=== PATIENT | male | born 1950 | race Caucasian/White ===

== ENCOUNTER 2016-07-01 01:46 | Outpatient (CLI) ==
[2016-07-01 02:13] VITALS: BMI 19.8
== END 2016-07-01 01:47 | disposition home or self-care (01) ==
LOC: AMBL 01:46
PROVIDERS: ATTEND Emergency Medicine
DX: F10.10 Alcohol abuse, uncomplicated (principal); F19.10 Other psychoactive substance abuse, uncomplicated; R47.81 Slurred speech; R26.9 Unspecified abnormalities of gait and mobility; I10 Essential (primary) hypertension

== ENCOUNTER 2016-07-01 01:58 | Emergency (ER) ==
[2016-07-01 02:13] VITALS: BP 71/43; TEMP 97.7; BMI 19.8
[2016-07-01 02:40] LABS: ABG PH 7.322 (7.35-7.45)
[2016-07-01 02:41] LABS: ABG BASE EXCESS 1 (-2.0-2.0); ABG HCO3 26.9 (22.0-26.0); ABG TCO2 28 (22.0-28.0)
[2016-07-01] MEDS ORDERED: DUONEB NEB STA (02:49)
[2016-07-01] MEDS ORDERED: SOLU-MEDROL 125 MG IVP STA (02:49)
--- NOTE | 2016-07-01 02:53 | ED.PDOC ---
General ED Provider: Dr. CIRO BERNARDO Chief Complaint: Weakness Stated Complaint: Patient is brought by the sister, as he was found on the floor and blood pressure is low, he is been drinking tonight, and took extra pain medications for migrain, now has some slurry speach, Time Seen by Physician: 02:50 Mode of Arrival: Ambulance Information Source: Patient, Family, Alf [facility] T[facility] Documentation Reviewed and Agree: Yes Neurological Complaint Exam - Weakness Complaint/Exam Onset: Sudden Symptoms Are: Still present Timing: Constant Episodes Lasting: Hours Initial Severity: Moderate Current Severity: Moderate Character: Reports: Lightheaded, Weak Aggravating: Reports: None Alleviating: Reports: None Associated Signs and Symptoms: Reports: Unsteady gait, Change in medication, OTC meds, Loss of balance. Denies: Nausea, Vomiting, Diaphoresis, Tinnitus, Chest pain, Short of air, Palpitations, GI blood loss, Visual changes, Decreased oral intake, Change in diet Related History: Similar episode Cardiac Risk Factors: Reports: None CVA Risk Factors: Reports: Valvular Heart Disease Related Surgical History: Reports: None JVD Present: No Carotid Bruit Present: No Rectal Heme Positive: No Nystagmus Present: No Gag Reflex Present: No Meningeal Signs Positive: No Focal Weakness: Present: None Focal Sensory Loss: Present: None Gait: Unable [id number]: Normal Findings Romberg Test Positive: No Babinski Sign: Negative Right, Negative Left Heel to Toe Normal: Yes Differential Diagnoses: Hypovolemia, Medication reaction, Metabolic abnormalities, Other (etoh) Quality Indicators for AMI: EKG in 10min. Review of Systems - Review Of Systems Constitutional: Reports: Malaise, Weakness Eyes: Reports: No symptoms Ears, Nose, Mouth, Throat: Reports: No symptoms Respiratory: Reports: Cough Cardiac: Reports: No symptoms GI: Reports: No symptoms : Reports: No symptoms Musculoskeletal: Reports: No symptoms Skin: Reports: No symptoms Neurological: Reports: Headache, Weakness Endocrine: Reports: No symptoms Hematologic/Lymphatic: Reports: No symptoms All Other Systems: Reviewed and Negative Past Medical History - Past Medical History Previously Healthy: No Endocrine: Reports: None Cardiovascular: Reports: Hypertension, A-Fib Respiratory: Reports: COPD, Asthma Hematological: Reports: None Gastrointestinal: Reports: None Genitourinary: Reports: None Neuro/Psych: Reports: Migraine, Anxiety, Depression Musculoskeletal: Reports: None Cancer: Reports: None Other Pertinent Past Medical History: cspine stenosis cce - Surgical History General Surgical History: Reports: Cholecystectomy - Family History Family History: Reports: Unknown - Social History Smoking Status: Current every day smoker, Heavy tobacco smoker Smoking Cessation Counseling Time: > 10 min Hx Substance Use: No Alcohol Screening: Occasionally - Immunizations Tetanus Shot up to Date: Yes Physical Exam - Physical Exam Appearance: Ill-appearing, Obese Ill-appearing: Mild Eyes: EOMI, Conjunctiva clear ENT: Ears normal, Nose normal, Oropharynx normal Respiratory: Breath sounds diminished Cardiovascular: RRR, Pulses normal, No rub, No murmur GI/: Soft, Nontender, No masses, Bowel sounds normal, No Organomegaly Musculoskeletal: Normal strength, ROM intact, No edema, No calf tenderness Skin: Warm, Dry, Normal color Neurological: Sensation intact, Motor intact (following commands and moving all 4 extremities), Cranial nerves intact, Alert, Oriented Psychiatric: Affect appropriate, Mood appropriate Interpretation - Radiology Interpretation Radiology Interpretation By: Radiologist Radiology Results: Negative Exam Interpreted: CT Scan Critical Care Note - Critical Care Note Total Time (mins): 0 Course - Course Hematology/Chemistry: 07/01/16 02:50 07/01/16 08:00 Orders, Labs, Meds: Lab Review 07/01/16 07/01/16 07/01/16 02:40 02:49 02:50 WBC 9.00 RBC 4.71 Hgb 14.3 Hct 43.9 MCV 93.2 MCH 30.4 MCHC 32.6 RDW Coeff of [place] 15.1 H Plt Count 239 Immature Gran % (Auto) 0.3 Neut % (Auto) 61.1 Lymph % (Auto) 28.3 Wirt % (Auto) 6.9 Eos % (Auto) 2.0 Baso % (Auto) 1.4 Immature Gran # (Auto) 0.0 Neut # 5.5 Lymph # 2.6 Wirt # 0.6 Eos # 0.2 Baso # 0.1 Puncture Site Rb O2 Saturation 86.0 L ABG pH 7.322 L ABG pCO2 52.0 H ABG pO2 57.0 L* ABG HCO3 26.9 H ABG Total CO2 28 ABG Base Excess 1 Willian Test + O2 Delivery Device Bnc Oxygen Liter Flow 2.00 FiO2 % 28.0 Sodium 144 Potassium 2.9 L Chloride 103 Carbon Dioxide 27 Anion Gap 16.9 BUN 14 Creatinine 0.81 Estimated GFR (MDRD) 96.00 BUN/Creatinine Ratio 17.28 Glucose 76 L Calcium 8.7 Total Bilirubin 0.22 AST 22 ALT 16 Alkaline Phosphatase 73 Total Creatine Kinase 75 Troponin I 0.0120 B-Natriuretic Peptide 76 Total Protein 7.0 Albumin 3.8 Globulin 3.2 Albumin/Globulin Ratio 1.19 Urine Color Urine Clarity Urine pH Ur Specific [place] Urine Protein Urine Glucose (UA) Urine Ketones Urine Blood Urine Nitrite Urine Bilirubin Urine Urobilinogen Ur Leukocyte Esterase Urine Microscopic RBC Urine Microscopic WBC Ur Squamous Epith Cells Urine Opiates Screen Ur Oxycodone Screen Urine Methadone Screen Ur Propoxyphene Screen Ur Barbiturates Screen U Tricyclic Antidepress Ur Phencyclidine Scrn Ur Amphetamine Screen U Methamphetamines Scrn U Benzodiazepines Scrn Urine Cocaine Screen U Cannabinoids Screen Plasma/Serum Alcohol 216.5 H 07/01/16 07/01/16 07/01/16 08:00 09:25 09:30 WBC RBC Hgb Hct MCV MCH MCHC RDW Coeff of [place] Plt Count Immature Gran % (Auto) Neut % (Auto) Lymph % (Auto) Wirt % (Auto) Eos % (Auto) Baso % (Auto) Immature Gran # (Auto) Neut # Lymph # Wirt # Eos # Baso # Puncture Site O2 Saturation ABG pH ABG pCO2 ABG pO2 ABG HCO3 ABG Total CO2 ABG Base Excess Willian Test O2 Delivery Device Oxygen Liter Flow FiO2 % Sodium Potassium 3.8 Chloride Carbon Dioxide Anion Gap BUN Creatinine Estimated GFR (MDRD) BUN/Creatinine Ratio Glucose Calcium Total Bilirubin AST ALT Alkaline Phosphatase Total Creatine Kinase Troponin I B-Natriuretic Peptide Total Protein Albumin Globulin Albumin/Globulin Ratio Urine Color Yellow Urine Clarity Clear Urine pH 6.0 Ur Specific [place] 1.015 Urine Protein 1+ Urine Glucose (UA) Negative Urine Ketones Trace Urine Blood Negative Urine Nitrite Negative Urine Bilirubin Negative Urine Urobilinogen 0.2 Ur Leukocyte Esterase Negative Urine Microscopic RBC 0-2 Urine Microscopic WBC 0-2 Ur Squamous Epith Cells 2-5 Urine Opiates Screen Positive Ur Oxycodone Screen Negative Urine Methadone Screen Negative Ur Propoxyphene Screen Negative Ur Barbiturates Screen Negative U Tricyclic Antidepress Negative Ur Phencyclidine Scrn Negative Ur Amphetamine Screen Negative U Methamphetamines Scrn Negative U Benzodiazepines Scrn Negative Urine Cocaine Screen Negative U Cannabinoids Screen Negative Plasma/Serum Alcohol 41.2 Orders Category Date Time Status ABG DRAW REQUEST Stat CARDIO 07/01/16 02:40 Completed EKG-(ED ONLY) Stat CARDIO 07/01/16 05:46 Completed NEBULIZER TREATMENT Stat CARDIO 07/01/16 02:50 Completed IV [ED IV/MEDIPORT/POWERPORT] .ONCE EMERGENCY 07/01/16 02:59 Active ABG Stat LAB 07/01/16 02:40 Completed BLOOD ALCOHOL Stat LAB 07/01/16 02:49 Completed BLOOD ALCOHOL Stat LAB 07/01/16 09:30 Completed BNP [B-TYPE NATRIURETIC PEPTIDE] Stat LAB 07/01/16 02:50 Completed CBC W/ AUTO DIFF Stat LAB 07/01/16 02:50 Completed COMPREHENSIVE METABOLIC PANEL Stat LAB 07/01/16 02:50 Completed CREATINE KINASE Stat LAB 07/01/16 02:50 Completed DRUG SCREEN, URINE, RAPID Stat LAB 07/01/16 09:25 Completed POTASSIUM Stat LAB 07/01/16 08:00 Completed TROPONIN I Stat LAB 07/01/16 02:50 Completed URINALYSIS C & S IF INDICATED Stat LAB 07/01/16 09:25 Completed 0.9 % Sodium Chloride [Saline Flush] MEDS 07/01/16 02:59 Discontinued 1 syr IVF PRN PRN Ipratropium/Albuterol Neb [Duoneb] MEDS 07/01/16 02:49 Discontinued 1 vial NEB ONCE STA Meperidine HCl/Pf [Demerol 25 mg/ml Syringe] MEDS 07/01/16 10:20 Discontinued 25 mg IVP ONCE STA Methylprednisolone Sod Succ/Pf [Solu-Medrol 125 mg] MEDS 07/01/16 02:49 Discontinued 80 mg IVP ONCE STA Ondansetron HCl/Pf [Zofran 4 mg/2 ml] MEDS 07/01/16 10:20 Discontinued 4 mg IVP ONCE STA Potassium Chloride Additive [Potassium Chloride 20 Meq MEDS 07/01/16 06:52 Discontinued Vial-Additive Only] 20 meq IV ONCE ONE Potassium Chloride [K-Dur] MEDS 07/01/16 06:52 Discontinued 40 meq PO ONCE STA Sodium Chloride 0.9% [Sodium Chloride] 1,000 ml MEDS 07/01/16 02:56 Discontinued IV 100 mls/hr CT CHEST W/O CONTRAST Stat RADS 07/01/16 02:[address] HEAD W/O CONTRAST Stat RADS 07/01/16 02:31 Completed Medications Discontinued Medications Generic Name Dose Route Start Last Admin Trade Name Rey PRN Reason Stop Dose Admin Albuterol/Ipratropium 1 vial 07/01/16 02:49 07/01/16 03:16 Duoneb NEB 07/01/16 02:50 1 vial ONCE STA Administration Sodium Chloride 1,000 mls @ 100 mls/hr 07/01/16 02:56 07/01/16 02:59 Sodium Chloride IV 07/01/16 12:55 100 mls/hr .Q10H STA Administration Meperidine HCl 25 mg 07/01/16 10:20 07/01/16 10:43 Demerol 25 Mg/Ml Syringe IVP 07/01/16 10:21 25 mg ONCE STA Administration Methylprednisolone Sodium Succinate 80 mg 07/01/16 02:49 07/01/16 02:56 Solu-Medrol 125 Mg IVP 07/01/16 02:50 80 mg ONCE STA Administration Ondansetron HCl 4 mg 07/01/16 10:20 07/01/16 10:41 Zofran 4 Mg/2 Ml IVP 07/01/16 10:21 4 mg ONCE STA Administration Potassium Chloride 20 meq 07/01/16 06:52 07/01/16 07:08 Potassium Chloride 20 Meq Vial-Additive Only IV 07/01/16 06:53 20 meq ONCE ONE Administration Potassium Chloride 40 meq 07/01/16 06:52 07/01/16 07:08 K-Dur PO 07/01/16 06:53 40 meq ONCE STA Administration Sodium Chloride 1 syr 07/01/16 02:59 Saline Flush IVF PRN PRN To flush IV Vital Signs: Temp Pulse Resp BP Pulse Ox 07/01/16 02:00 97.7 F 57 L 18 71/43 L 85 L Departure - Departure Time of Disposition: 09:28 Disposition: HOME SELF-CARE Discharge Problem: Elevated ETOH level Qualifiers: Blood alcohol level: 200-239 mg/100 ml Qualifier Code: (Y90.7) Blood alcohol level of 200-239 mg/100 ml Hypotension Qualifiers: Hypotension type: hypotension due to drug Qualifier Code: (I95.2) Hypotension due to drugs Instructions: Alcohol Use Disorder (ED) Condition: Stable Pt referred to PMD for follow-up: Yes Additional Instructions: increase hydration needs to have f/u with PMD in 3-4 days advised to quite drinking etoh Allergies/Adverse Reactions: Allergies butorphanol tartrate [From Stadol] Adverse Reaction (Verified 07/01/16 02:13) prochlorperazine edisylate [From Compazine] Adverse Reaction (Verified 07/01/16 02:13) prochlorperazine maleate [From Compazine] Adverse Reaction (Verified 07/01/16 02 :13) Home Medications: Ambulatory Orders Buspirone HCl 7.5 mg PO TID 02/14/13 Sotalol HCl [Sotalol] 80 mg PO BID 02/14/13 Albuterol Sulfate [Ventolin Hfa] 2 inhaler IH QID PRN 10/22/14 Fluticasone Propionate [Flonase] 2 spray TACO DAILY 10/22/14 Lisinopril [Zestril] 40 mg PO BID 10/22/14 Escitalopram Oxalate [Lexapro] 40 mg PO DAILY 11/11/15 Pantoprazole Sodium [Protonix] 40 mg PO BID 11/11/15 Gabapentin 1,200 mg PO QID 11/19/15 Amlodipine Besylate 10 mg PO DAILY #30 tab-cap 12/04/15 Fluticasone/Salmeterol 250/50 [Advair 250-50 Diskus] 1 puff IH BID 01/18/16 Acetaminophen with Codeine [Acetaminophen-Cod #4 Tablet] 1 each PO Q6H PRN 07/01 Chlorpheniramine Maleate [Aller-Chlor] 4 mg PO Q4-6H PRN 07/01/16 Cyanocobalamin (Vitamin B-12) [Vitamin B12] 5,000 mcg PO DAILY 07/01/16 Disposition Discussed With: Patient, Family
[2016-07-01] MEDS ORDERED: SODIUM CHLORIDE 1,000 ML IV STA (02:56)
[2016-07-01 03:01] LABS: BASOPHILS # (AUTO) 0.1 K/uL (0-0.2); BASOPHILS % (AUTO) 1.4 % (0.0-3.0); EOSINOPHILS # (AUTO) 0.2 K/ul (0.0-0.7); HEMATOCRIT 43.9 % (42.0-52.0); HEMOGLOBIN 14.3 g/dl (14.0-18.0); IMMATURE GRANULOCYTE % (AUTO) 0.3 % (0.0-5.0); LYMPHOCYTES # (AUTO) 2.6 K/uL (0.60-3.4); LYMPHOCYTES % (AUTO) 28.3 (10.0-50.0); MEAN CORPUSCULAR HEMOGLOBIN 30.4 pg (27.0-31.0); MEAN CORPUSCULAR HGB CONC 32.6 (31.8-35.4); MEAN CORPUSCULAR VOLUME 93.2 fl (80.0-94.0); MONOCYTES # (AUTO) 0.6 K/uL (0.4-2.0); MONOCYTES % (AUTO) 6.9 (0-10); NEUTROPHILS # (AUTO) 5.5 K/ul (2.0-6.9); NEUTROPHILS % (AUTO) 61.1; PLATELET COUNT 239 10^3/uL (140-440); RED BLOOD COUNT 4.71 10^6/ul (4.70-6.10)
[2016-07-01 03:20] LABS: ALBUMIN 3.8 g/dL (3.4-5.0); ALBUMIN/GLOBULIN RATIO 1.19; ANION GAP 16.9; BILIRUBIN,TOTAL 0.22 mg/dL (0.00-1.20); BUN/CREATININE RATIO 17.28; CALCIUM 8.7 mg/dL (8.2-10.2); CREATININE 0.81 mg/dL (0.60-1.10); POTASSIUM 2.9 mmol/L (3.5-5.1)
[2016-07-01 03:43] LABS: TROPONIN I 0.012 ng/ml (0.0000-0.4000)
--- NOTE | 2016-07-01 03:52 | CT ---
EXAM: CT head without contrast. HISTORY: Slurred speech. PROCEDURE: Contiguous axial CT images of the head without contrast with coronal and sagittal reform ats. FINDINGS: The ventricles and basal cisterns are normal in size and configuration. No evidence of m ass or midline shift. No intracranial hemorrhage or evidence of large vessel infarct. No extra-axi al fluid collection. The paranasal sinuses and mastoid air cells are well-aerated. Impression: Negative CT of the head.
--- NOTE | 2016-07-01 03:57 | CT ---
EXAM: CT of the chest without contrast. HISTORY: Hypoxemia. PROCEDURE: Contiguous axial CT images of the chest without contrast with coronal and sagittal refor mats. FINDINGS: The heart is within normal limits in size. The thoracic aorta is within normal limits in diameter. There are calcified mediastinal and hilar lymph nodes. There are emphysematous changes throughout both lungs. There is a 0.6 cm nodule in the right lower lobe. There is a 0.7 cm nodule in the left upper lobe. There is minimal right middle lobe and lingular subsegmental atelectasis. There are degenerative changes in the spine. Impression: Chronic obstructive pulmonary disease. Bilateral lung nodules as described. Recommend follow-up CT in 3 months to assess stability. Minimal right middle lobe and lingular subsegmental atelectasis.
[2016-07-01] MEDS ORDERED: K-DUR PO STA (06:52)
[2016-07-01] MEDS ORDERED: POTASSIUM CHLORIDE 20 MEQ VIAL-ADDITIVE ONLY IV ONE (06:52)
[2016-07-01 09:29] LABS: BILIRUBIN,URINE Negative (NEGATIVE); KETONES,URINE Trace (NEGATIVE); LEUKOCYTE ESTERASE ,URINE Negative (NEGATIVE); NITRITE,URINE Negative (NEGATIVE); PROTEIN,URINE 1+ (NEGATIVE); URINE, BLOOD Negative (NEGATIVE)
[2016-07-01 09:30] LABS: ADD URINE MICROSCOPIC YES
[2016-07-01 09:42] LABS: COCAIN SCREEN,URINE NEGATIVE (NEGATIVE)
[2016-07-01] MEDS ORDERED: DEMEROL 25 MG/ML SYRINGE IVP STA (10:20)
[2016-07-01] MEDS ORDERED: ZOFRAN 4 MG/2 ML IVP STA (10:20)
== END 2016-07-01 11:15 | disposition home or self-care (01) ==
LOC: ED 01:58
DX: T50.905A Adverse effect of unspecified drugs, medicaments and biological substances, initial encounter (principal); I95.2 Hypotension due to drugs; Y90.7 Blood alcohol level of 200-239 mg/100 ml; I38 Endocarditis, valve unspecified; R51 Headache; R05 Cough; F17.210 Nicotine dependence, cigarettes, uncomplicated; Z79.899 Other long term (current) drug therapy
CPT/HCPCS: 36415; 80053; 80306; 80307; 81001; 82550; 82803; 83880; 84132; 84484; 85025; 93005; 93010; 94640; 96361; 96374; 96375; 99283

== ENCOUNTER 2016-10-20 09:15 | Outpatient (CLI) ==
[2016-10-20 14:24] LABS: BASOPHILS # (AUTO) 0.1 K/uL (0-0.2); BASOPHILS % (AUTO) 0.9 % (0.0-3.0); EOSINOPHILS # (AUTO) 0.2 K/ul (0.0-0.7); EOSINOPHILS % (AUTO) 2.1 % (0.0-7.0); HEMATOCRIT 46.5 % (42.0-52.0); IMMATURE GRANULOCYTE % (AUTO) 0.4 % (0.0-5.0); LYMPHOCYTES # (AUTO) 1.7 K/uL (0.60-3.4); LYMPHOCYTES % (AUTO) 20.4 (10.0-50.0); MEAN CORPUSCULAR HEMOGLOBIN 28.2 pg (27.0-31.0); MEAN CORPUSCULAR HGB CONC 32.3 (31.8-35.4); MEAN CORPUSCULAR VOLUME 87.6 fl (80.0-94.0); MONOCYTES # (AUTO) 0.6 K/uL (0.4-2.0); MONOCYTES % (AUTO) 6.7 (0-10); NEUTROPHILS # (AUTO) 5.9 K/ul (2.0-6.9); NEUTROPHILS % (AUTO) 69.5; PLATELET COUNT 218 10^3/uL (140-440); RED BLOOD COUNT 5.31 10^6/ul (4.70-6.10); WHITE BLOOD COUNT 8.52 K/ul (4.2-10.2)
[2016-10-20 14:27] LABS: BILIRUBIN,URINE 1+ (NEGATIVE); KETONES,URINE Negative (NEGATIVE); LEUKOCYTE ESTERASE ,URINE Negative (NEGATIVE); NITRITE,URINE Negative (NEGATIVE); PROTEIN,URINE 1+ (NEGATIVE); URINE, BLOOD Negative (NEGATIVE)
[2016-10-20 14:29] LABS: ADD URINE MICROSCOPIC YES
[2016-10-20 14:32] LABS: ALBUMIN 4.2 g/dL (3.4-5.0); ALBUMIN/GLOBULIN RATIO 1.2; ANION GAP 15.4; BILIRUBIN,TOTAL 0.76 mg/dL (0.00-1.20); BUN/CREATININE RATIO 12.98; CALCIUM 9.9 mg/dL (8.2-10.2); CHOL/HDL RATIO 3.2 (4.5-6.4); CREATININE 0.77 mg/dL (0.60-1.10); POTASSIUM 3.4 mmol/L (3.5-5.1); TOTAL PROTEIN 7.7 g/dL (5.8-8.1)
== END 2016-10-20 09:16 | disposition home or self-care (01) ==
LOC: LAB 09:15
PROVIDERS: ATTEND General Practice
DX: I48.0 Paroxysmal atrial fibrillation (principal); G47.00 Insomnia, unspecified; N17.9 Acute kidney failure, unspecified; Z79.899 Other long term (current) drug therapy
CPT/HCPCS: 36415; 80053; 80061; 81001; 85025

== ENCOUNTER 2017-01-12 14:43 | Emergency (ER) ==
[2017-01-12 14:48] VITALS: BP 153/98; TEMP 98.4; BMI 25.4
[2017-01-12] MEDS ORDERED: DILAUDID 1 MG/ML SYRINGE IM STA (15:13)
--- NOTE | 2017-01-12 15:16 | ED.PDOC ---
General ED Provider: Dr. ESTEBAN ORO Chief Complaint: Headache Stated Complaint: HEADACHE Time Seen by Physician: 14:55 (SEEN WITH MICHELLE NO NEW CHANGES WITH PAIN LOCATION OR PATTERN) Mode of Arrival: Walk-In Information Source: Patient, Family Exam Limitations: No limitations [facility] and Triage Documentation Reviewed and Agree: Yes (NO CHANGE IN PAIN RN AT BEDSIDE) Neurological Complaint Exam - Headache Complaint/Exam Onset: Gradual Duration: 1 DAY Symptoms Are: Still present Timing: Constant Episodes Lasting: Hours Worst Headache Ever: No Initial Severity: Moderate Current Severity: Moderate Location: Left, Temporal Character: Reports: Throbbing Aggravating: Reports: None Alleviating: Reports: None Associated Signs and Symptoms: Reports: Nausea. Denies: Dizziness, Seizure, Vomiting, Sinus pressure, Fever, Neck pain, Neck stiffness, Decreased LOC, Visual changes Related History: Reports: Similar episode Related Surgical History: Reports: None SAH Risk Factors: Reports: Hypertension Meningitis Risk Factors: Reports: None SDH Risk Factors: Reports: Male, Elderly Temporal Arteritis Risk Factors: Reports: , Over 60 years old Normal Head CT Within Last 12 Months: Yes (MANY MRI HAVE BEEN NEGATIVE SAID THE PT MICHELLE PRESENT ) Fundoscopic Exam: Present: Normal Findings Papilledema Present: No Temporal Artery Tenderness: Present: None Sinus Tenderness: Present: None TMJ Tenderness: Present: None Glascow Coma Scale (see protocol): 15 Meningeal Signs Positive: No Pain on Passive Flexion-Positive Kernig's: No ROM Limited In: No Limitiations Focal Weakness: Present: None Focal Sensory Loss: Present: None Gait: Normal Nystagmus Present: No Gag Reflex Present: Yes [id number]: Normal Findings Babinski Sign: Negative Right, Negative Left Differential Diagnoses: Migraine, Tension Headache Review of Systems - Review Of Systems Constitutional: Reports: No symptoms Eyes: Reports: No symptoms Ears, Nose, Mouth, Throat: Reports: No symptoms Respiratory: Reports: No symptoms Cardiac: Reports: No symptoms GI: Reports: No symptoms : Reports: No symptoms Musculoskeletal: Reports: No symptoms Skin: Reports: No symptoms Neurological: Reports: Headache Endocrine: Reports: No symptoms Hematologic/Lymphatic: Reports: No symptoms All Other Systems: Reviewed and Negative Past Medical History - Past Medical History Previously Healthy: No Endocrine: Reports: None Cardiovascular: Reports: Hypertension, A-Fib Respiratory: Reports: COPD, Asthma Hematological: Reports: None Gastrointestinal: Reports: None Genitourinary: Reports: None Neuro/Psych: Reports: Migraine, Anxiety, Depression Musculoskeletal: Reports: None Cancer: Reports: None Other Pertinent Past Medical History: cspine stenosis cce - Surgical History General Surgical History: Reports: Cholecystectomy - Family History Family History: Reports: Unknown - Social History Smoking Status: Current every day smoker, Heavy tobacco smoker Hx Substance Use: No Alcohol Screening: Occasionally - Immunizations Tetanus Shot up to Date: Yes Physical Exam - Physical Exam Appearance: Well-appearing, No pain distress, Well-nourished Eyes: NANDO, EOMI, Conjunctiva clear ENT: Ears normal, Nose normal, Oropharynx normal Respiratory: Airway patent, Breath sounds clear, Breath sounds equal, Respirations nonlabored Cardiovascular: RRR, Pulses normal, No rub, No murmur GI/: Soft, Nontender, No masses, Bowel sounds normal, No Organomegaly Musculoskeletal: Normal strength, ROM intact, No edema, No calf tenderness Skin: Warm, Dry, Normal color Neurological: Sensation intact, Motor intact, Reflexes intact, Cranial nerves intact, Alert, Oriented Psychiatric: Affect appropriate, Mood appropriate Critical Care Note - Critical Care Note Total Time (mins): 0 Course - Course Orders, Labs, Meds: Orders Category Date Time Status Hydromorphone HCl [Dilaudid 1 mg/ml Syringe] MEDS 01/12/17 15:13 Stat 0.5 mg IM ONCE STA Medications Discontinued Medications Generic Name Dose Route Start Last Admin Trade Name Freq PRN Reason Stop Dose Admin Hydromorphone HCl 0.5 mg 01/12/17 15:13 Dilaudid 1 Mg/Ml Syringe IM 01/12/17 15:14 ONCE STA Vital Signs: Temp Pulse Resp BP Pulse Ox 01/12/17 14:43 98.4 F 76 20 153/98 H 98 Departure - Departure Time of Disposition: 15:17 Disposition: HOME SELF-CARE Discharge Problem: Headache Instructions: Acute Headache (ED) Condition: Good Pt referred to PMD for follow-up: Yes Additional Instructions: Please call your Family Physician as soon as possible to schedule a follow-up appointment. Allergies/Adverse Reactions: Allergies butorphanol tartrate [From Stadol] Adverse Reaction (Unverified 12/22/16 14:29) prochlorperazine edisylate [From Compazine] Adverse Reaction (Unverified 14:29) prochlorperazine maleate [From Compazine] Adverse Reaction (Unverified 12/22/16 14:29) Home Medications: Ambulatory Orders Buspirone HCl 7.5 mg PO TID 02/14/13 Albuterol Sulfate [Ventolin Hfa] 2 inhaler IH QID PRN 10/22/14 Escitalopram Oxalate [Lexapro] 40 mg PO DAILY 11/11/15 Pantoprazole Sodium [Protonix] 40 mg PO BID 11/11/15 Amlodipine Besylate 10 mg PO DAILY #30 tab-cap 12/04/15 Fluticasone/Salmeterol 250/50 [Advair 250-50 Diskus] 1 puff IH BID 01/18/16 Acetaminophen with Codeine [Acetaminophen-Cod #4 Tablet] 1 each PO Q6H PRN 07/01 Chlorpheniramine Maleate [Aller-Chlor] 4 mg PO Q4-6H PRN 07/01/16 Gabapentin 400 mg PO QID #270 tab-cap 08/10/16 Guaifenesin [Mucinex] 1,200 mg PO DAILY #30 tab-cap 11/08/16 Clonidine HCl 0.1 mg PO BEDTIME #30 tab-cap 12/22/16
[2017-01-12] MEDS ORDERED: PHENERGAN 25 MG/ML VIAL IM STA (15:20)
== END 2017-01-12 16:02 | disposition home or self-care (01) ==
LOC: ED 14:43
DX: R51 Headache (principal); I10 Essential (primary) hypertension; R11.0 Nausea; F17.210 Nicotine dependence, cigarettes, uncomplicated; Z79.899 Other long term (current) drug therapy
CPT/HCPCS: 96372; 99282

== ENCOUNTER 2017-02-10 12:49 | Outpatient (CLI) ==
[2017-02-10 13:32] LABS: BASOPHILS # (AUTO) 0.1 K/uL (0-0.2); EOSINOPHILS # (AUTO) 0.2 K/ul (0.0-0.7); EOSINOPHILS % (AUTO) 2.2 % (0.0-7.0); HEMATOCRIT 46.5 % (42.0-52.0); HEMOGLOBIN 15.3 g/dl (14.0-18.0); IMMATURE GRANULOCYTE % (AUTO) 0.4 % (0.0-5.0); LYMPHOCYTES # (AUTO) 2.1 K/uL (0.60-3.4); LYMPHOCYTES % (AUTO) 26.1 (10.0-50.0); MEAN CORPUSCULAR HEMOGLOBIN 30.2 pg (27.0-31.0); MEAN CORPUSCULAR HGB CONC 32.9 (31.8-35.4); MEAN CORPUSCULAR VOLUME 91.7 fl (80.0-94.0); MONOCYTES # (AUTO) 0.5 K/uL (0.4-2.0); MONOCYTES % (AUTO) 6.7 (0-10); NEUTROPHILS # (AUTO) 5.1 K/ul (2.0-6.9); NEUTROPHILS % (AUTO) 63.6; PLATELET COUNT 214 10^3/uL (140-440); RED BLOOD COUNT 5.07 10^6/ul (4.70-6.10); WHITE BLOOD COUNT 8.07 K/ul (4.2-10.2)
[2017-02-10 13:48] LABS: ALBUMIN 3.9 g/dL (3.4-5.0); ALBUMIN/GLOBULIN RATIO 1.11; ANION GAP 16.1; BILIRUBIN,TOTAL 0.98 mg/dL (0.00-1.20); BUN/CREATININE RATIO 16.21; CALCIUM 10.1 mg/dL (8.2-10.2); CREATININE 0.74 mg/dL (0.60-1.10); POTASSIUM 4.1 mmol/L (3.5-5.1); TOTAL PROTEIN 7.4 g/dL (5.8-8.1)
[2017-02-10 16:05] LABS: BILIRUBIN,URINE Negative (NEGATIVE); KETONES,URINE Negative (NEGATIVE); LEUKOCYTE ESTERASE ,URINE Negative (NEGATIVE); NITRITE,URINE Negative (NEGATIVE); PROTEIN,URINE Trace (NEGATIVE); URINE, BLOOD Trace-intact (NEGATIVE)
[2017-02-10 16:08] LABS: ADD URINE MICROSCOPIC YES
== END 2017-02-10 12:50 | disposition home or self-care (01) ==
LOC: LAB 12:49
PROVIDERS: ATTEND General Practice
DX: I10 Essential (primary) hypertension (principal); Z12.5 Encounter for screening for malignant neoplasm of prostate; Z79.899 Other long term (current) drug therapy; Z87.09 Personal history of other diseases of the respiratory system
CPT/HCPCS: 36415; 80053; 80061; 81001; 85025

== ENCOUNTER 2017-03-06 20:01 | Emergency (ER) ==
[2017-03-06] MEDS ORDERED: DUONEB NEB ONE (20:04)
[2017-03-06] MEDS ORDERED: DUONEB NEB STA (20:06)
[2017-03-06] MEDS ORDERED: XOPENEX 1.25 MG NEB STA (20:06)
[2017-03-06] MEDS ORDERED: SOLU-MEDROL 125 MG IVP STA (20:08)
[2017-03-06 20:11] VITALS: BP 175/93; TEMP 98.6; BMI 32.1
[2017-03-06 20:20] LABS: ABG BASE EXCESS 5 (-2.0-2.0); ABG HCO3 32.2 (22.0-26.0); ABG PCO2 71.6 mmHg (35-45)
[2017-03-06 20:21] LABS: ABG TCO2 34 (22.0-28.0)
[2017-03-06 20:33] LABS: BASOPHILS # (AUTO) 0.1 K/uL (0-0.2); BASOPHILS % (AUTO) 0.7 % (0.0-3.0); EOSINOPHILS % (AUTO) 0.1 % (0.0-7.0); HEMATOCRIT 48.2 % (42.0-52.0); HEMOGLOBIN 15.3 g/dl (14.0-18.0); IMMATURE GRANULOCYTE % (AUTO) 0.5 % (0.0-5.0); LYMPHOCYTES # (AUTO) 1.9 K/uL (0.60-3.4); LYMPHOCYTES % (AUTO) 12.6 (10.0-50.0); MEAN CORPUSCULAR HEMOGLOBIN 29.9 pg (27.0-31.0); MEAN CORPUSCULAR HGB CONC 31.7 (31.8-35.4); MEAN CORPUSCULAR VOLUME 94.3 fl (80.0-94.0); MONOCYTES # (AUTO) 0.8 K/uL (0.4-2.0); MONOCYTES % (AUTO) 5.1 (0-10); NEUTROPHILS # (AUTO) 12.1 K/ul (2.0-6.9); PLATELET COUNT 263 10^3/uL (140-440); RED BLOOD COUNT 5.11 10^6/ul (4.70-6.10)
[2017-03-06] MEDS ORDERED: SODIUM CHLORIDE 1,000 ML IV STA (20:34)
[2017-03-06 20:53] LABS: ALBUMIN 3.9 g/dL (3.4-5.0); ALBUMIN/GLOBULIN RATIO 1.18; ANION GAP 15.9; BILIRUBIN,TOTAL 0.47 mg/dL (0.00-1.20); BUN/CREATININE RATIO 26.08; CALCIUM 9.2 mg/dL (8.2-10.2); CREATININE 0.69 mg/dL (0.60-1.10); POTASSIUM 3.9 mmol/L (3.5-5.1); TOTAL PROTEIN 7.2 g/dL (5.8-8.1)
[2017-03-06 21:21] LABS: ABG PH 7.265 (7.35-7.45)
[2017-03-06 21:22] LABS: ABG BASE EXCESS 5 (-2.0-2.0); ABG HCO3 32.1 (22.0-26.0); ABG PCO2 70.7 mmHg (35-45); ABG TCO2 34 (22.0-28.0)
--- NOTE | 2017-03-06 21:30 | ED.PDOC ---
General ED Provider: Dr. JOLLY CLARK-ER Chief Complaint: Shortness of Air Stated Complaint: hes been sob all day--i cant keep his oxygen up Time Seen by Physician: 20:05 Mode of Arrival: Wheelchair Information Source: Patient, Family Exam Limitations: Clinical condition Primary Care Provider: [facility] Nursing and Triage Documentation Reviewed and Agree: Yes Respiratory Complaint Exam - Shortness of Air Complaint/Exam Onset/Duration: several hours Symptoms Are: Still present Timing: Constant Initial Severity: Mild Current Severity: Moderate Character: Reports: Dyspnea at rest Aggravating: Reports: None Alleviating: Reports: Bronchodilators Associated Signs and Symptoms: Reports: Wheezing, Labored breathing, Decreased intake. Denies: Cough, Chest pain with cough, Chest pain, Fever, Chills, Diaphoresis, Nasal congestion, Dizziness, Calf pain, Calf swelling, Edema, Rapid breathing Related History: Reports: Similar episode History of Healthcare-Acquired Pneumonia: No Cardiac Risk Factors: Reports: Smoking Pseudomonas Risk Factors: Reports: Chronic Lung Disease Tuberculosis Risk Factors: Reports: Chronic Resp. Faliure Home Oxygen Use: Yes Recent Stress Test: No Recent Echo/LV Function: No Respiratory Distress: None Stridor Present: No Tracheal Deviation: No Subcutaneous Emphysema: No Accessory Muscle Use: Yes Retractions: Supraclavicular Diminished Breath Sounds: Yes Prolonged Expiratory Phase: No Unable to Speak Full Sentences: Yes Fatigue: Yes Leg Swelling: No Vesna's Sign Present: No Grunting Respirations: No Kussmaul Respirations: No Differential Diagnoses: COPD Exacerbation, Other Quality Indicator For Non-Traumatic Chest Pain/Syncope: EKG Performed Review of Systems - Review Of Systems Constitutional: Reports: No symptoms Eyes: Reports: No symptoms Ears, Nose, Mouth, Throat: Reports: No symptoms Respiratory: Reports: Cough, Short of air Cardiac: Reports: No symptoms GI: Reports: No symptoms : Reports: No symptoms Musculoskeletal: Reports: No symptoms Skin: Reports: No symptoms Neurological: Reports: No symptoms Endocrine: Reports: No symptoms Hematologic/Lymphatic: Reports: No symptoms All Other Systems: Reviewed and Negative Past Medical History - Past Medical History Previously Healthy: No Endocrine: Reports: None Cardiovascular: Reports: Hypertension, A-Fib Respiratory: Reports: COPD, Asthma Hematological: Reports: None Gastrointestinal: Reports: None Genitourinary: Reports: None Neuro/Psych: Reports: Migraine, Anxiety, Depression Musculoskeletal: Reports: None Cancer: Reports: None Other Pertinent Past Medical History: cspine stenosis cce - Surgical History General Surgical History: Reports: Cholecystectomy - Family History Family History: Reports: Unknown - Social History Smoking Status: Current every day smoker, Heavy tobacco smoker Hx Substance Use: No Alcohol Screening: Occasionally Lives: With family - Immunizations Tetanus Shot up to Date: Yes Physical Exam - Physical Exam Appearance: Ill-appearing Ill-appearing: Mild Eyes: NANDO, EOMI, Conjunctiva clear ENT: Ears normal, Nose normal, Oropharynx normal Neck: Supple Respiratory: Breath sounds diminished Cardiovascular: RRR GI/: Soft, Nontender, No masses, Bowel sounds normal, No Organomegaly Musculoskeletal: Normal strength, ROM intact, No edema, No calf tenderness Skin: Warm, Dry, Normal color Neurological: Sensation intact, Motor intact, Reflexes intact, Cranial nerves intact, Alert, Oriented Psychiatric: Affect appropriate, Mood appropriate Interpretation - Radiology Interpretation Radiology Interpretation By: Radiologist Radiology Results: Positive Exam Interpreted: CT Scan ("right lower lobe consolidation") Procedures - Intubation Indication: Present: Respiratory Insufficiency, Altered Mental Status Time of Intubation: 22:05 Type of Tube Used: Endotracheal Tube Size: 7.5 Cricoid Pressure Used: Yes Tube Light Used: Yes Number of Attempts: 1 Suction Used: Yes Glidescope Used: Yes CO2 Detector Used: Yes Lung Sounds Equal Bilaterally: Yes Intubation Complications: Present: No complications Tube Inserted By: emiliano lema Tube Placement Verified by X-ray: Yes Physician Notification - Case Discussed Physician Notified: dr kim hospitalist Time of Notification: 22:13 Critical Care Note - Critical Care Note Total Time (mins): 30 Course - Course Hematology/Chemistry: 03/06/17 20:25 03/06/17 20:25 Orders, Labs, Meds: Lab Review 03/06/17 03/06/17 03/06/17 20:05 20:25 20:25 WBC 14.90 H RBC 5.11 Hgb 15.3 Hct 48.2 MCV 94.3 H MCH 29.9 MCHC 31.7 L RDW Coeff of [place] 14.6 Plt Count 263 Immature Gran % (Auto) 0.5 Neut % (Auto) 81.0 Lymph % (Auto) 12.6 [place]alier % (Auto) 5.1 Eos % (Auto) 0.1 Baso % (Auto) 0.7 Immature Gran # (Auto) 0.1 Neut # 12.1 H Lymph # 1.9 Cavalier # 0.8 Eos # 0.0 Baso # 0.1 D-Dimer (Manual) Puncture Site Rr O2 Saturation 23.0 L ABG pH 7.260 L* ABG pCO2 71.6 H ABG pO2 20.0 L* ABG HCO3 32.2 H ABG Total CO2 34 H ABG Base Excess 5 H Willian Test + O2 Delivery Device FiO2 % 21.0 Sodium 142 Potassium 3.9 Chloride 101 Carbon Dioxide 29 Anion Gap 15.9 BUN 18 Creatinine 0.69 Estimated GFR (MDRD) 115.00 BUN/Creatinine Ratio 26.08 Glucose 145 H Lactic Acid Calcium 9.2 Total Bilirubin 0.47 AST 37 ALT 30 Alkaline Phosphatase 86 B-Natriuretic Peptide Total Protein 7.2 Albumin 3.9 Globulin 3.3 Albumin/Globulin Ratio 1.18 Procalcitonin Salicylate Level mg/dL Acetaminophen 03/06/17 03/06/17 03/06/17 20:25 20:25 20:25 WBC RBC Hgb Hct MCV MCH MCHC RDW Coeff of [place] Plt Count Immature Gran % (Auto) Neut % (Auto) Lymph % (Auto) [place] % (Auto) Eos % (Auto) Baso % (Auto) Immature Gran # (Auto) Neut # Lymph # [place]ier # Eos # Baso # D-Dimer (Manual) 838.27 Puncture Site O2 Saturation ABG pH ABG pCO2 ABG pO2 ABG HCO3 ABG Total CO2 ABG Base Excess Willian Test O2 Delivery Device FiO2 % Sodium Potassium Chloride Carbon Dioxide Anion Gap BUN Creatinine Estimated GFR (MDRD) BUN/Creatinine Ratio Glucose Lactic Acid 10.4 Calcium Total Bilirubin AST ALT Alkaline Phosphatase B-Natriuretic Peptide 614 H Total Protein Albumin Globulin Albumin/Globulin Ratio Procalcitonin Salicylate Level mg/dL Acetaminophen 03/06/17 03/06/17 03/06/17 20:25 20:25 21:19 WBC RBC Hgb Hct MCV MCH MCHC RDW Coeff of [place] Plt Count Immature Gran % (Auto) Neut % (Auto) Lymph % (Auto) [place]ier % (Auto) Eos % (Auto) Baso % (Auto) Immature Gran # (Auto) Neut # Lymph # Cavalier # Eos # Baso # D-Dimer (Manual) Puncture Site Rb O2 Saturation 74.0 L ABG pH 7.265 L* ABG pCO2 70.7 H ABG pO2 47.0 L* ABG HCO3 32.1 H ABG Total CO2 34 H ABG Base Excess 5 H Willian Test + O2 Delivery Device Bipap FiO2 % 50.0 Sodium Potassium Chloride Carbon Dioxide Anion Gap BUN Creatinine Estimated GFR (MDRD) BUN/Creatinine Ratio Glucose Lactic Acid Calcium Total Bilirubin AST ALT Alkaline Phosphatase B-Natriuretic Peptide Total Protein Albumin Globulin Albumin/Globulin Ratio Procalcitonin < 0.05 Salicylate Level mg/dL < 5.0 Acetaminophen 4 L Orders Category Date Time Status ABG DRAW REQUEST DAILY@0600 CARDIO 03/07/17 06:00 Ordered ABG DRAW REQUEST DAILY@0600 CARDIO 03/08/17 06:00 Ordered ABG DRAW REQUEST DAILY@0600 CARDIO 03/09/17 06:00 Ordered ABG DRAW REQUEST DAILY@0600 CARDIO 03/10/17 06:00 Ordered ABG DRAW REQUEST Stat CARDIO 03/06/17 20:05 Completed BIPAP Routine CARDIO 03/06/17 20:34 Active EKG-(ED ONLY) Stat CARDIO 03/06/17 20:05 Completed NEBULIZER TREATMENT Stat CARDIO 03/06/17 20:06 Completed TRANSFER TO OUTSIDE FACILITY .TO [facility] 03/06/17 21:55 Active ([place], [place]) WRITE TRANSFER/SBAR NOTE ONCE CARE 03/06/17 21:55 Active DISCHARGE ASSESSMENT ONCE DISCHARGE 03/06/17 21:55 Active WRITE DISCHARGE NOTE ONCE DISCHARGE 03/06/17 21:55 Active IV [ED IV/MEDIPORT/POWERPORT] .ONCE EMERGENCY 03/06/17 20:06 Active ABG DAILY@0600 LAB 03/07/17 06:00 Ordered ABG DAILY@0600 LAB 03/08/17 06:00 Ordered ABG DAILY@0600 LAB 03/09/17 06:00 Ordered ABG DAILY@0600 LAB 03/10/17 06:00 Ordered ABG Routine LAB 03/06/17 21:19 Completed ABG Stat LAB 03/06/17 20:05 Completed ACETAMINOPHEN Stat LAB 03/06/17 20:25 Completed ASPIRIN LEVEL [SALICYLATE] Stat LAB 03/06/17 20:25 Completed B-TYPE NATRIURETIC PEPTIDE Stat LAB 03/06/17 20:25 Completed BLOOD CULTURE (ED ONLY) Stat LAB 03/06/17 20:25 Received CBC W/ AUTO DIFF Stat LAB 03/06/17 20:25 Completed COMPREHENSIVE METABOLIC PANEL Stat LAB 03/06/17 20:25 Completed D-DIMER Stat LAB 03/06/17 20:25 Completed LACTIC ACID Stat LAB 03/06/17 20:25 Completed PROCALCITONIN Stat LAB 03/06/17 20:25 Completed URINALYSIS C & S IF INDICATED Stat LAB 03/06/17 21:38 Uncollected URINE DRUG SCREEN (RAPID FOR ED) [DRUG SCREEN, URINE, LAB 03/06/17 21:38 Uncollected RAPID] Stat 0.9 % Sodium Chloride [Saline Flush] MEDS 03/06/17 20:06 Ordered 1 syr IVF PRN PRN 0.9 % Sodium Chloride [Saline Flush] MEDS 03/06/17 20:08 Ordered 1 syr IVF PRN PRN 0.9 % Sodium Chloride [Saline Flush] MEDS 03/06/17 20:34 Ordered 1 syr IVF PRN PRN Ceftriaxone Sodium [Rocephin] MEDS 03/06/17 21:40 Discontinued 1 gm .ROUTE .STK-MED ONE Ceftriaxone Sodium [Rocephin] 1 gm MEDS 03/06/17 21:36 Active 0.9 % Sodium Chloride [Sodium Chloride] 50 ml IV ONCE Ipratropium/Albuterol Neb [Duoneb] MEDS 03/06/17 20:04 Discontinued 1 vial NEB .STK-MED ONE Ipratropium/Albuterol Neb [Duoneb] MEDS 03/06/17 20:06 Discontinued 1 vial NEB ONCE STA Levalbuterol HCl [Xopenex 1.25 mg] MEDS 03/06/17 20:06 Discontinued 1 vial NEB ONCE STA Methylprednisolone Sod Succ/Pf [Solu-Medrol 125 mg] MEDS 03/06/17 20:08 Discontinued 125 mg IVP ONCE STA Phenylephrine HCl in 0.9% NaCl [Phenylephrine 1000 Mcg/ MEDS 03/06/17 22:10 Discontinued 10 ml-Ns] 1,000 mcg IVP .STK-MED ONE Sodium Chloride 0.9% [Sodium Chloride] 1,000 ml MEDS 03/06/17 20:34 Active IV 30 mls/hr CT CHEST W/O CONTRAST Stat RADS 03/06/17 20:[address] HEAD W/O CONTRAST Stat RADS 03/06/17 20:30 Completed CXR [CHEST, 1V AP ONLY] Stat RADS 03/06/17 22:05 Ordered Medications Generic Name Dose Route Start Last Admin Trade Name Freq PRN Reason Stop Dose Admin Sodium Chloride 1,000 mls @ 30 mls/hr 03/06/17 20:34 03/06/17 21:10 Sodium Chloride IV 03/08/17 05:53 30 mls/hr .[id number] STA Administration Ceftriaxone Sodium 1 gm/ 50 mls @ 75 mls/hr 03/06/17 21:36 03/06/17 21:45 Sodium Chloride IV 03/06/17 22:15 75 mls/hr ONCE STA Administration Sodium Chloride 1 syr 03/06/17 20:06 03/06/17 20:30 Saline Flush IVF 1 syr PRN PRN Administration To flush IV Sodium Chloride 1 syr 03/06/17 20:08 Saline Flush IVF PRN PRN To flush IV Sodium Chloride 1 syr 03/06/17 20:34 Saline Flush IVF PRN PRN To flush IV Discontinued Medications Generic Name Dose Route Start Last Admin Trade Name Freq PRN Reason Stop Dose Admin Albuterol/Ipratropium 1 vial 03/06/17 20:06 03/06/17 20:20 Duoneb NEB 03/06/17 20:07 1 vial ONCE STA Administration Levalbuterol HCl 1 vial 03/06/17 20:06 03/06/17 21:25 Xopenex 1.25 Mg NEB 03/06/17 20:07 1 vial ONCE STA Administration Methylprednisolone Sodium Succinate 125 mg 03/06/17 20:08 03/06/17 20:25 Solu-Medrol 125 Mg IVP 03/06/17 20:09 125 mg ONCE STA Administration Vital Signs: Temp Pulse Resp BP Pulse Ox 03/06/17 22:09 20 03/06/17 21:25 87 L 03/06/17 20:30 89 L 03/06/17 20:02 98.6 F 101 H 24 175/93 H 48 L Departure - Departure Time of Disposition: 22:13 Disposition: TSF SHORT-TRM HOSP Discharge Problem: Acute respiratory failure Qualifiers: Respiratory failure complication: hypoxia and hypercapnia Qualified Code(s): J96.01 - Acute respiratory failure with hypoxia Pneumonia Qualifiers: Pneumonia type: due to unspecified organism Laterality: right Lung location: lower lobe of lung Qualified Code(s): J18.1 - Lobar pneumonia, unspecified organism Instructions: COPD (Chronic Obstructive Pulmonary Disease) (ED) Condition: Stable Pt referred to PMD for follow-up: Yes Allergies/Adverse Reactions: Allergies butorphanol tartrate [From Stadol] Adverse Reaction (Verified 03/06/17 20:45) prochlorperazine edisylate [From Compazine] Adverse Reaction (Verified 03/06/17 20:45) prochlorperazine maleate [From Compazine] Adverse Reaction (Verified 03/06/17 20 :45) Home Medications: Ambulatory Orders Buspirone HCl 7.5 mg PO TID 02/14/13 Albuterol Sulfate [Ventolin Hfa] 2 inhaler IH QID PRN 10/22/14 Escitalopram Oxalate [Lexapro] 40 mg PO DAILY 11/11/15 Pantoprazole Sodium [Protonix] 40 mg PO BID 11/11/15 Amlodipine Besylate 10 mg PO DAILY #30 tab-cap 12/04/15 Fluticasone/Salmeterol 250/50 [Advair 250-50 Diskus] 1 puff IH BID 01/18/16 Acetaminophen with Codeine [Acetaminophen-Cod #4 Tablet] 1 each PO Q6H PRN 07/01 Gabapentin 1,200 mg PO QID #270 tab-cap 08/10/16 Guaifenesin [Mucinex] 1,200 mg PO DAILY PRN #30 tab-cap 11/08/16 Clonidine HCl 0.1 mg PO BEDTIME #30 tab-cap 12/22/16 Lisinopril [Zestril] 40 mg PO BID 03/06/17 Sotalol HCl [Sotalol] 80 mg PO Q12HR 03/06/17 Transfer Form Completed: Yes Disposition Discussed With: Patient
--- NOTE | 2017-03-06 21:34 | CT ---
EXAM: CT chest without contrast HISTORY: Acute respiratory distress/failure and headache COMPARISON: CT chest 07/01/2016 and prior chest x-rays TECHNIQUE: Serial axial images of the chest were obtained from the lung apices to the upper abdomen without contrast. These were viewed in multiple planes. FINDINGS: The thyroid is normal. The visualized vessels demonstrate mild to moderate atheroscleroti c disease of the aorta without aneurysm or stenosis. The pulmonary arteries are enlarged. The heart is normal in size without pericardial effusion. There is a precarinal lymph node measuring 1.1 cm in short axis. AP window lymph node measures 0.8 cm in short axis. Subcarinal lymph node measures 1.3 cm. There is no pneumothorax or pleural effusion. There is bilateral lower lobe airway thickening with d ebris in the small airways in the right lower lobe. There is bilateral lower lobe atelectasis. Mild interstitial thickening. There is emphysematous disease. Pulmonary nodules described on prior exami nation and are not well visualized due to dependent consolidation and ground-glass. The there is dep endent interstitial ground-glass and thickening in the upper lobes. Soft tissues in the upper abdomen on this limited evaluation demonstrate prior cholecystectomy with m ild hazy ground-glass in the region of the gallbladder fossa and adjacent duodenum. The osseous stru ctures are unremarkable. IMPRESSION: 1. Airway thickening and dependent ground-glass consolidation with debris noted within the small air ways in the right lower lobe suggestive of aspiration. Small airways inflammation/infection could als o be considered. 2. Stable chronic obstructive pulmonary disease. 3. Nodules described on prior CT are not visualized due to consolidations. 4. Mediastinal lymph nodes are likely reactive. 5. Mild hazy ground-glass noted in the region of the duodenum and prior cholecystectomy may represen t a component of inflammation/duodenitis. This was not present on prior chest CT.
[2017-03-06] MEDS ORDERED: ROCEPHIN 1 GM in SODIUM CHLORIDE 50 ML IV STA (21:36)
[2017-03-06] MEDS ORDERED: ROCEPHIN ONE (21:40)
--- NOTE | 2017-03-06 21:43 | CT ---
Exam: CT of the brain without intravenous contrast. Comparison: 07/01/2016. Reason for exam: Headache. FINDINGS: No acute intracranial hemorrhage, mass effect, ventricular dilatation, or territorial infa rction. There is atherosclerotic disease of the internal carotid arteries, right and left proximal M CA, and vertebral arteries. The quadrigeminal and ambient cisterns are patent. There is no extraaxia l fluid collection. There is minimal mucosal thickening in the ethmoid sinus. The calvarium is intact. Impression: No acute intracranial findings with intracranial atherosclerotic disease. If clinical suspicion exis ts for acute infarct, MRI may be performed. Report faxed at [phone] [facility] on 03/06/2017
[2017-03-06 21:55] LABS: ACETAMINOPHEN 4 ug/ml (10-30); SALICYLATE < 5.0 mg/dL (2.8-20.0)
[2017-03-06] MEDS ORDERED: PHENYLEPHRINE IVP ONE (22:10)
[2017-03-06] MEDS ORDERED: SODIUM CHLORIDE IVP ONE (22:10)
[2017-03-06] MEDS ORDERED: DIPRIVAN 20 ML VIAL IVP STA (22:26)
[2017-03-06] MEDS ORDERED: VERSED IVP STA ×2 (22:26→22:37)
[2017-03-06] MEDS ORDERED: NORCURON IVP STA ×2 (22:26→22:41)
[2017-03-06] MEDS ORDERED: ANECTINE IVP STA (22:26)
[2017-03-06] MEDS ORDERED: PHENYLEPHRINE IVP STA (22:26)
[2017-03-06] MEDS ORDERED: KETALAR MDV IVP STA (22:26)
[2017-03-06] MEDS ORDERED: SODIUM CHLORIDE IVP STA (22:26)
[2017-03-06 22:30] LABS: ABG BASE EXCESS 3 (-2.0-2.0); ABG HCO3 28.3 (22.0-26.0); ABG PCO2 48.3 mmHg (35-45); ABG PH 7.375 (7.35-7.45); ABG TCO2 30 (22.0-28.0)
--- NOTE | 2017-03-06 22:35 | ED.PDOC ---
Procedures - Intubation Time of Intubation: 22:04 Medications: Yes: Norcuron, Succinylcholine, Versed, Other ( ketamine 50mg IV @ 2204) Type of Tube Used: Endotracheal Tube Size: 7.5 Cricoid Pressure Used: No Tube Light Used: Yes Position of Tube at Lip: 23 Number of Attempts: 1 Suction Used: No Glidescope Used: No CO2 Detector Used: Yes Lung Sounds Equal Bilaterally: Yes Intubation Complications: Present: No complications Tube Inserted By: Daniel Anand CRNA Tube Placement Verified by X-ray: Yes - IV/Art Line Insertion Location: Rt wrist and art stick Lt wrist Type of Line: Peripheral IV (arterial stick X one attempt without difficulty) Invasive Line/IV Catheter Gauge: 22 Number of Attempts: 1 Blood Return Positive: Yes Invasive Line/IV Flushes Without Difficulty: Yes Conscious Sedation - Pre-op Assessment Weight: 170 lb Surgical History: GB - Medical History Past Medical History: Hypertension, A-FIb, COPD, Asthma, Depression, Anxiety, Migraines Other History: ON VENTILATOR AT [facility] END OF SEPTEMBER 2015 WITH SEPSIS - Physical Exam Heart Rate/Rhythm: Regular Rhythm
--- NOTE | 2017-03-06 22:53 | DI ---
EXAM: AP single view of the chest. HISTORY: Post intubation. FINDINGS: The endotracheal tube is in adequate position. The bones are unremarkable. The cardiac si lhouette and pulmonary vasculature are within normal limits. The costophrenic angles are incompletel y visualized secondary to the field of view. There is minimal right basilar atelectasis and/or pneumo annamaria. There are calcified granulomas. Impression: Minimal right basilar atelectasis and/or pneumonia. Endotracheal tube in adequate position.
== END 2017-03-06 23:00 | disposition short-term general hospital (02) ==
LOC: ED 20:01
DX: J96.01 Acute respiratory failure with hypoxia (principal); J18.1 Lobar pneumonia, unspecified organism; R06.02 Shortness of breath; I10 Essential (primary) hypertension; J44.9 Chronic obstructive pulmonary disease, unspecified; F17.210 Nicotine dependence, cigarettes, uncomplicated; Z79.899 Other long term (current) drug therapy
CPT/HCPCS: 36415; 80053; 80307; 82803; 83605; 83880; 84145; 85025; 85379; 87040; 93005; 93010; 94640; 94660; 96365; 96375; 96376; 99285

== ENCOUNTER 2017-04-11 15:46 | Emergency (ER) ==
[2017-04-11 15:51] VITALS: BP 108/71; TEMP 96.2; BMI 32.5
[2017-04-11] MEDS ORDERED: MORPHINE 10 MG/ML SYRINGE IM STA (16:09)
[2017-04-11] MEDS ORDERED: ZOFRAN 4 MG/2 ML IM STA (16:10)
[2017-04-11] MEDS ORDERED: MORPHINE 2 MG/ML SYRINGE IM STA (16:13)
--- NOTE | 2017-04-11 16:20 | ED.PDOC ---
General ED Provider: Dr. ESTEBAN ORO Chief Complaint: Headache Stated Complaint: headache Time Seen by Physician: 16:00 Mode of Arrival: Walk-In Information Source: Patient Exam Limitations: No limitations [facility] and Triage Documentation Reviewed and Agree: Yes Neurological Complaint Exam - Headache Complaint/Exam Onset: Gradual Duration: today Symptoms Are: Still present Timing: Constant Episodes Lasting: Hours Worst Headache Ever: No Initial Severity: Moderate Current Severity: Moderate Location: Frontal, Temporal Character: Reports: Throbbing Aggravating: Reports: None Alleviating: Reports: None Associated Signs and Symptoms: Reports: Nausea. Denies: Dizziness, Seizure, Vomiting, Sinus pressure, Fever, Neck pain, Neck stiffness, Decreased LOC, Visual changes Related History: Reports: Similar episode Related Surgical History: Reports: None SAH Risk Factors: Reports: None Meningitis Risk Factors: Reports: None SDH Risk Factors: Reports: Elderly Normal Head CT Within Last 12 Months: Yes Fundoscopic Exam: Present: Normal Findings Papilledema Present: No Temporal Artery Tenderness: Present: None Sinus Tenderness: Present: None TMJ Tenderness: Present: None Glascow Coma Scale (see protocol): 15 Meningeal Signs Positive: No Pain on Passive Flexion-Positive Kernig's: No ROM Limited In: No Limitiations Focal Weakness: Present: None Focal Sensory Loss: Present: None Gait: Normal Nystagmus Present: No Gag Reflex Present: No Romberg Test Positive: No Differential Diagnoses: Migraine Review of Systems - Review Of Systems Constitutional: Reports: No symptoms Eyes: Reports: No symptoms Ears, Nose, Mouth, Throat: Reports: No symptoms Respiratory: Reports: No symptoms Cardiac: Reports: No symptoms GI: Reports: Abdominal pain, Nausea, Vomiting : Reports: No symptoms Musculoskeletal: Reports: No symptoms Skin: Reports: No symptoms Neurological: Reports: No symptoms Endocrine: Reports: No symptoms Hematologic/Lymphatic: Reports: No symptoms All Other Systems: Reviewed and Negative Past Medical History - Past Medical History Previously Healthy: No Endocrine: Reports: None Cardiovascular: Reports: Hypertension, A-Fib Respiratory: Reports: COPD, Asthma Hematological: Reports: None Gastrointestinal: Reports: None Genitourinary: Reports: None Neuro/Psych: Reports: Migraine, Anxiety, Depression Musculoskeletal: Reports: None Cancer: Reports: None Other Pertinent Past Medical History: cspine stenosis cce - Surgical History General Surgical History: Reports: Cholecystectomy - Family History Family History: Reports: Unknown - Social History Smoking Status: Current every day smoker, Heavy tobacco smoker Hx Substance Use: No Alcohol Screening: Occasionally Physical Exam - Physical Exam Appearance: Well-appearing, No pain distress, Well-nourished Eyes: NANDO, EOMI, Conjunctiva clear ENT: Ears normal, Nose normal, Oropharynx normal Respiratory: Airway patent, Breath sounds clear, Breath sounds equal, Respirations nonlabored Cardiovascular: RRR, Pulses normal, No rub, No murmur GI/: Soft, Nontender, No masses, Bowel sounds normal, No Organomegaly Musculoskeletal: Normal strength, ROM intact, No edema, No calf tenderness Skin: Warm, Dry, Normal color Neurological: Sensation intact, Motor intact, Reflexes intact, Cranial nerves intact, Alert, Oriented Psychiatric: Affect appropriate, Mood appropriate Critical Care Note - Critical Care Note Total Time (mins): 0 Course - Course Orders, Labs, Meds: Orders Category Date Time Status Morphine Sulfate [Morphine 2 mg/ml Syringe] MEDS 04/11/17 16:13 Discontinued 4 mg IM ONCE STA Ondansetron HCl/Pf [Zofran 4 mg/2 ml] MEDS 04/11/17 16:10 Discontinued 4 mg IM ONCE STA Medications Discontinued Medications Generic Name Dose Route Start Last Admin Trade Name Freq PRN Reason Stop Dose Admin Morphine Sulfate 4 mg 04/11/17 16:13 Morphine 2 Mg/Ml Syringe IM 04/11/17 16:14 ONCE STA Ondansetron HCl 4 mg 04/11/17 16:10 Zofran 4 Mg/2 Ml IM 04/11/17 16:11 ONCE STA Vital Signs: Temp Pulse Resp BP Pulse Ox 04/11/17 16:15 96 04/11/17 15:46 96.2 F L 71 18 108/71 81 L Departure - Departure Time of Disposition: 16:20 Disposition: HOME SELF-CARE Discharge Problem: Headache Instructions: Acute Headache (ED) Condition: Good Pt referred to PMD for follow-up: Yes Allergies/Adverse Reactions: Allergies butorphanol tartrate [From Stadol] Adverse Reaction (Verified 04/11/17 15:51) prochlorperazine edisylate [From Compazine] Adverse Reaction (Verified 04/11/17 15:51) prochlorperazine maleate [From Compazine] Adverse Reaction (Verified 04/11/17 15 :51) Home Medications: Ambulatory Orders Albuterol Sulfate [Ventolin Hfa] 2 inhaler IH QID PRN 10/22/14 Escitalopram Oxalate [Lexapro] 40 mg PO DAILY 11/11/15 Pantoprazole Sodium [Protonix] 40 mg PO BID 11/11/15 Amlodipine Besylate 10 mg PO DAILY #30 tab-cap 12/04/15 Fluticasone/Salmeterol 250/50 [Advair 250-50 Diskus] 1 puff IH BID 01/18/16 Acetaminophen with Codeine [Acetaminophen-Cod #4 Tablet] 1 each PO Q6H PRN 07/01 Guaifenesin [Mucinex] 1,200 mg PO DAILY PRN #30 tab-cap 11/08/16 Lisinopril [Zestril] 40 mg PO BID 03/06/17 Sotalol HCl [Sotalol] 80 mg PO Q12HR 03/06/17 Buspirone HCl 7.5 mg PO TID #90 tab-cap 03/20/17 Diazepam [Valium] 5 mg PO PRN PRN 04/11/17
== END 2017-04-11 17:00 | disposition home or self-care (01) ==
LOC: ED 15:46
DX: R51 Headache (principal); R10.9 Unspecified abdominal pain; R11.2 Nausea with vomiting, unspecified; F17.210 Nicotine dependence, cigarettes, uncomplicated; Z79.899 Other long term (current) drug therapy
CPT/HCPCS: 96372; 99282

== ENCOUNTER 2017-04-25 13:00 | Outpatient (CLI) | END 2017-04-25 13:01 | disposition home or self-care (01) | LOC: LAB 13:00 | PROVIDERS: ATTEND General Practice | DX: E03.8 Other specified hypothyroidism (principal); E04.1 Nontoxic single thyroid nodule | CPT/HCPCS: 36415; 84443 ==

== ENCOUNTER 2017-07-17 12:59 | Emergency (ER) ==
[2017-07-17 13:01] VITALS: BP 124/77; TEMP 98.5; BMI 22.6
[2017-07-17] MEDS ORDERED: MORPHINE 2 MG/ML SYRINGE IM STA (13:05)
[2017-07-17] MEDS ORDERED: PHENERGAN 25 MG/ML VIAL IM STA (13:06)
--- NOTE | 2017-07-17 13:09 | ED.PDOC ---
General ED Provider: Dr. ESTEBAN ORO Chief Complaint: Headache Stated Complaint: headache 7 days Time Seen by Physician: 13:00 Mode of Arrival: Walk-In Information Source: Patient Exam Limitations: No limitations Primary Care Provider: TIA CLEMENTE Referred to ED by: Other (same headache as he has had ) Nursing and Triage Documentation Reviewed and Agree: Yes Reviewed sepsis parameters & appropriate labs ordered?: Yes (negative trauma seen with sivan at all times ) System Inflammatory Response Syndrome: Not Applicable Sepsis Protocol: For patient's 13 years and over: Temp is 96.8 and below OR 101 and greater Pulse >90 BPM Resp >20/minute Acutely Altered Mental Status Are patient's symptoms suggestive of a new infection, such as: -Pneumonia -Skin, Soft Tissue -Endocarditis -UTI -Bone, Joint Infection -Implantable Device -Acute Abdominal Infection -Wound Infection -Meningitis -Blood Stream Catheter Infection -Unknown System Inflammatory Response Syndrome: Not Applicable Neurological Complaint Exam - Headache Complaint/Exam Onset: Gradual Duration: 7 day Symptoms Are: Still present Timing: Constant Episodes Lasting: Hours Worst Headache Ever: No Initial Severity: Moderate Current Severity: Moderate Location: Diffuse Character: Reports: Dull, Throbbing Aggravating: Reports: None Alleviating: Reports: None Associated Signs and Symptoms: Denies: Dizziness, Seizure, Nausea, Vomiting, Sinus pressure, Fever, Neck pain, Neck stiffness, Decreased LOC, Visual changes Related History: Reports: Similar episode Related Surgical History: Reports: None SAH Risk Factors: Reports: None Meningitis Risk Factors: Reports: None SDH Risk Factors: Reports: Male, Elderly Temporal Arteritis Risk Factors: Reports: Over 60 years old Normal Head CT Within Last 12 Months: Yes Fundoscopic Exam: Present: Normal Findings Papilledema Present: No Temporal Artery Tenderness: Present: None Sinus Tenderness: Present: None TMJ Tenderness: Present: None Glascow Coma Scale (see protocol): 15 Meningeal Signs Positive: No Pain on Passive Flexion-Positive Kernig's: No ROM Limited In: No Limitiations Focal Weakness: Present: None Focal Sensory Loss: Present: None Gait: Normal Nystagmus Present: No Gag Reflex Present: No Differential Diagnoses: Migraine Review of Systems - Review Of Systems Constitutional: Reports: No symptoms Eyes: Reports: No symptoms Ears, Nose, Mouth, Throat: Reports: No symptoms Respiratory: Reports: No symptoms Cardiac: Reports: No symptoms GI: Reports: No symptoms : Reports: No symptoms Musculoskeletal: Reports: No symptoms Skin: Reports: No symptoms Neurological: Reports: Headache Endocrine: Reports: No symptoms Hematologic/Lymphatic: Reports: No symptoms All Other Systems: Reviewed and Negative Past Medical History - Past Medical History Previously Healthy: No Endocrine: Reports: None Cardiovascular: Reports: Hypertension, A-Fib Respiratory: Reports: COPD, Asthma Hematological: Reports: None Gastrointestinal: Reports: None Genitourinary: Reports: None Neuro/Psych: Reports: Migraine, Anxiety, Depression Musculoskeletal: Reports: None Cancer: Reports: None Other Pertinent Past Medical History: cspine stenosis cce - Surgical History General Surgical History: Reports: Cholecystectomy - Family History Family History: Reports: Unknown - Social History Smoking Status: Current every day smoker Hx Substance Use: No Alcohol Screening: None - Immunizations Tetanus Shot up to Date: No Physical Exam - Physical Exam Appearance: Well-appearing, No pain distress, Well-nourished Eyes: NANDO, EOMI, Conjunctiva clear ENT: Ears normal, Nose normal, Oropharynx normal Respiratory: Airway patent, Breath sounds clear, Breath sounds equal, Respirations nonlabored Cardiovascular: RRR, Pulses normal, No rub, No murmur GI/: Soft, Nontender, No masses, Bowel sounds normal, No Organomegaly Musculoskeletal: Normal strength, ROM intact, No edema, No calf tenderness Skin: Warm, Dry, Normal color Neurological: Sensation intact, Motor intact, Reflexes intact, Cranial nerves intact, Alert, Oriented Psychiatric: Affect appropriate, Mood appropriate Critical Care Note - Critical Care Note Total Time (mins): 0 Course - Course Orders, Labs, Meds: Orders Category Date Time Status Morphine Sulfate [Morphine 2 mg/ml Syringe] MEDS 07/17/17 13:05 Stat 4 mg IM ONCE STA Promethazine HCl [Phenergan 25 mg/ml Vial] MEDS 07/17/17 13:06 Stat 25 mg IM ONCE STA Medications Discontinued Medications Generic Name Dose Route Start Last Admin Trade Name Freq PRN Reason Stop Dose Admin Morphine Sulfate 4 mg 07/17/17 13:05 Morphine 2 Mg/Ml Syringe IM 07/17/17 13:06 ONCE STA Vital Signs: Temp Pulse Resp BP Pulse Ox 07/17/17 12:59 98.5 F 70 20 124/77 88 L Departure - Departure Time of Disposition: 13:09 (seen with gordo) Disposition: HOME SELF-CARE Discharge Problem: Headache Instructions: Migraine Headache (ED) Condition: Good Pt referred to PMD for follow-up: Yes IPMP verified?: No Allergies/Adverse Reactions: Allergies butorphanol tartrate [From Stadol] Adverse Reaction (Verified 04/11/17 15:51) prochlorperazine edisylate [From Compazine] Adverse Reaction (Verified 04/11/17 15:51) prochlorperazine maleate [From Compazine] Adverse Reaction (Verified 04/11/17 15 :51) Home Medications: Ambulatory Orders Albuterol Sulfate [Ventolin Hfa] 2 inhaler IH QID PRN 10/22/14 Escitalopram Oxalate [Lexapro] 40 mg PO DAILY 11/11/15 Pantoprazole Sodium [Protonix] 40 mg PO BID 11/11/15 Acetaminophen with Codeine [Acetaminophen-Cod #4 Tablet] 1 each PO Q6H PRN 07/01 Guaifenesin [Mucinex] 1,200 mg PO DAILY PRN #30 tab-cap 11/08/16 Buspirone HCl 7.5 mg PO TID #90 tab-cap 03/20/17 Diazepam [Valium] 5 mg PO PRN PRN 04/11/17 Albuterol Sulfate [Ventolin Hfa] 18 gm IH DAILY 05/03/17 Amlodipine Besylate 10 mg PO DAILY 05/03/17 Aspirin 81 mg PO ONCE 05/03/17 Ipratropium/Albuterol Sulfate [Iprat-Albut 0.5-3(2.5) Mg/3 Ml] 3 ml IH 05/03/17 Lisinopril 10 mg PO DAILY 05/03/17 Cyanocobalamin (Vitamin B-12) [Vitamin B12] 2,500 mcg PO DAILY #30 tab-cap 05/19 Rivaroxaban [Xarelto] 20 mg PO DAILY #30 tab-cap 05/19/17
== END 2017-07-17 13:36 | disposition home or self-care (01) ==
LOC: ED 12:59
DX: R51 Headache (principal); F17.210 Nicotine dependence, cigarettes, uncomplicated
CPT/HCPCS: 96372; 99282

== ENCOUNTER 2017-07-20 16:57 | Outpatient (CLI) | END 2017-07-20 16:58 | disposition home or self-care (01) | LOC: CAR 16:57 | PROVIDERS: ATTEND General Practice | DX: G47.30 Sleep apnea, unspecified (principal); J44.9 Chronic obstructive pulmonary disease, unspecified; G47.00 Insomnia, unspecified; Z87.09 Personal history of other diseases of the respiratory system; Z72.0 Tobacco use | CPT/HCPCS: 95811 ==

== ENCOUNTER 2017-09-13 15:23 | Emergency (ER) ==
[2017-09-13 15:26] VITALS: BP 157/81; TEMP 98.7; BMI 22.4
[2017-09-13] MEDS ORDERED: DILAUDID 1 MG/ML SYRINGE IM STA (15:45)
[2017-09-13] MEDS ORDERED: PHENERGAN 25 MG/ML VIAL IM STA (15:46)
--- NOTE | 2017-09-13 15:49 | ED.PDOC ---
General ED Provider: Dr. ESTEBAN ORO Chief Complaint: Headache Stated Complaint: headache Time Seen by Physician: 15:30 (seen pt with cr at all times ) Mode of Arrival: Walk-In Information Source: Patient Primary Care Provider: TIA CLEMENTE Referred to ED by: Other Nursing and Triage Documentation Reviewed and Agree: Yes Reviewed sepsis parameters & appropriate labs ordered?: Yes System Inflammatory Response Syndrome: Not Applicable Sepsis Protocol: For patient's 13 years and over: Temp is 96.8 and below OR 101 and greater Pulse >90 BPM Resp >20/minute Acutely Altered Mental Status Are patient's symptoms suggestive of a new infection, such as: -Pneumonia -Skin, Soft Tissue -Endocarditis -UTI -Bone, Joint Infection -Implantable Device -Acute Abdominal Infection -Wound Infection -Meningitis -Blood Stream Catheter Infection -Unknown System Inflammatory Response Syndrome: Not Applicable Neurological Complaint Exam - Headache Complaint/Exam Onset: Gradual Duration: chronic issue onset pain 1 day Symptoms Are: Still present Timing: Constant Episodes Lasting: Hours Worst Headache Ever: No Initial Severity: Moderate Current Severity: Moderate Location: Frontal, Temporal Character: Reports: Throbbing Aggravating: Reports: None Alleviating: Reports: None Associated Signs and Symptoms: Denies: Dizziness, Seizure, Nausea, Vomiting, Sinus pressure, Fever, Neck pain, Neck stiffness, Decreased LOC, Visual changes Related History: Reports: Similar episode Related Surgical History: Reports: None SAH Risk Factors: Reports: Hypertension Meningitis Risk Factors: Reports: None SDH Risk Factors: Reports: None Temporal Arteritis Risk Factors: Reports: None Normal Head CT Within Last 12 Months: No Fundoscopic Exam: Present: Normal Findings Papilledema Present: No Temporal Artery Tenderness: Present: None Sinus Tenderness: Present: None TMJ Tenderness: Present: None Glascow Coma Scale (see protocol): 15 Meningeal Signs Positive: No Pain on Passive Flexion-Positive Kernig's: No ROM Limited In: No Limitiations Focal Weakness: Present: None Focal Sensory Loss: Present: None Gait: Normal Nystagmus Present: No Gag Reflex Present: Yes Differential Diagnoses: Migraine Review of Systems - Review Of Systems Constitutional: Reports: No symptoms Eyes: Reports: No symptoms Ears, Nose, Mouth, Throat: Reports: No symptoms Respiratory: Reports: No symptoms Cardiac: Reports: No symptoms GI: Reports: No symptoms : Reports: No symptoms Musculoskeletal: Reports: No symptoms Skin: Reports: No symptoms Neurological: Reports: Headache Endocrine: Reports: No symptoms Hematologic/Lymphatic: Reports: No symptoms All Other Systems: Reviewed and Negative Past Medical History - Past Medical History Previously Healthy: No Endocrine: Reports: None Cardiovascular: Reports: Hypertension, A-Fib Respiratory: Reports: COPD, Asthma Hematological: Reports: None Gastrointestinal: Reports: None Genitourinary: Reports: None Neuro/Psych: Reports: Migraine, Anxiety, Depression Musculoskeletal: Reports: None Cancer: Reports: None Other Pertinent Past Medical History: cspine stenosis cce - Surgical History General Surgical History: Reports: Cholecystectomy - Family History Family History: Reports: Unknown - Social History Smoking Status: Current every day smoker, Light tobacco smoker Hx Substance Use: No Alcohol Screening: None Physical Exam - Physical Exam Appearance: Well-appearing, No pain distress, Well-nourished Eyes: NANDO, EOMI, Conjunctiva clear ENT: Ears normal, Nose normal, Oropharynx normal Respiratory: Airway patent, Breath sounds clear, Breath sounds equal, Respirations nonlabored Cardiovascular: RRR, Pulses normal, No rub, No murmur GI/: Soft, Nontender, No masses, Bowel sounds normal, No Organomegaly Musculoskeletal: Normal strength, ROM intact, No edema, No calf tenderness Skin: Warm, Dry, Normal color Neurological: Sensation intact, Motor intact, Reflexes intact, Cranial nerves intact, Alert, Oriented Psychiatric: Affect appropriate, Mood appropriate Critical Care Note - Critical Care Note Total Time (mins): 0 Course - Course Orders, Labs, Meds: Orders Category Date Time Status Hydromorphone HCl [Dilaudid 1 mg/ml Syringe] MEDS 09/13/17 15:45 Stat 0.5 mg IM ONCE STA Promethazine HCl [Phenergan 25 mg/ml Vial] MEDS 09/13/17 15:46 Stat 50 mg IM ONCE STA Medications Discontinued Medications Generic Name Dose Route Start Last Admin Trade Name Freq PRN Reason Stop Dose Admin Hydromorphone HCl 0.5 mg 09/13/17 15:45 Dilaudid 1 Mg/Ml Syringe IM 09/13/17 15:46 ONCE STA Vital Signs: Temp Pulse Resp BP Pulse Ox 09/13/17 15:23 98.7 F 56 L 18 157/81 H 94 L Departure - Departure Time of Disposition: 16:30 (cr present at all times i encouraged to see a neurologist. and do discusse chronic pain care with his PMD ) Disposition: HOME SELF-CARE Discharge Problem: Headache Instructions: Migraine Headache (ED) Condition: Good Pt referred to PMD for follow-up: Yes IPMP verified?: No Additional Instructions: Please call your Family Physician as soon as possible to schedule a follow-up appointment. Allergies/Adverse Reactions: Allergies butorphanol tartrate [From Stadol] Adverse Reaction (Verified 09/13/17 15:27) prochlorperazine edisylate [From Compazine] Adverse Reaction (Verified 09/13/17 15:27) prochlorperazine maleate [From Compazine] Adverse Reaction (Verified 09/13/17 15 :27) Home Medications: Ambulatory Orders Albuterol Sulfate [Ventolin Hfa] 2 inhaler IH QID PRN 10/22/14 Escitalopram Oxalate [Lexapro] 40 mg PO DAILY 11/11/15 Pantoprazole Sodium [Protonix] 40 mg PO BID 11/11/15 Guaifenesin [Mucinex] 1,200 mg PO DAILY PRN #30 tab-cap 11/08/16 Buspirone HCl 7.5 mg PO TID #90 tab-cap 03/20/17 Albuterol Sulfate [Ventolin Hfa] 18 gm IH DAILY 05/03/17 Amlodipine Besylate 5 mg PO DAILY 05/03/17 Aspirin 81 mg PO ONCE 05/03/17 Ipratropium/Albuterol Sulfate [Iprat-Albut 0.5-3(2.5) Mg/3 Ml] 3 ml IH DAILY Lisinopril 10 mg PO DAILY 05/03/17 Cyanocobalamin (Vitamin B-12) [Vitamin B12] 2,500 mcg PO DAILY #30 tab-cap 05/19 Rivaroxaban [Xarelto] 20 mg PO DAILY #30 tab-cap 05/19/17 Disposition Discussed With: Patient
[2017-09-13] MEDS ORDERED: DILAUDID 2 MG/ML SYRINGE ONE (16:01)
== END 2017-09-13 16:32 | disposition home or self-care (01) ==
LOC: ED 15:23
DX: R51 Headache (principal); I10 Essential (primary) hypertension; F17.210 Nicotine dependence, cigarettes, uncomplicated; Z79.899 Other long term (current) drug therapy
CPT/HCPCS: 96372; 99282

== ENCOUNTER 2017-10-13 14:15 | Emergency (ER) | payer OTHER ==
[2017-10-13 14:19] VITALS: BMI 21.9
[2017-10-13] MEDS ORDERED: TYLENOL PO STA ×2 (14:35→14:54)
[2017-10-13] MEDS ORDERED: PHENERGAN 25 MG/ML VIAL IM STA (14:35)
--- NOTE | 2017-10-13 15:10 | CT ---
EXAM: CT of the head without contrast History: Headache. Comparison: Head CT 09/04/2016 Technique: Multiplanar CT images through the head were obtained without the administration of IV con trast Findings: The visualized paranasal sinuses are clear in general. Left mastoid air cells are general ly clear. Small right mastoid effusion. No acute calvarial abnormalities. Intracranially the ventricular and cisternal spaces are normal in size, shape and configuration for a patient of this age. No dominant mass or midline shift. No hydrocephalous. No acute intracranial hemorrhage or abnormal extraaxial fluid collections. Impression: 1. No acute intracranial process. 2. Small right mastoid effusion
--- NOTE | 2017-10-13 15:31 | ED.PDOC ---
General ED Provider: Dr. ESTEBAN ORO Chief Complaint: Headache Stated Complaint: headache Time Seen by Physician: 14:20 (seen with Sadia GRAHAM AT ALL TIMES ) Mode of Arrival: Walk-In Information Source: Patient Exam Limitations: No limitations Primary Care Provider: TIA DONALDNataliya Referred to ED by: Other (NO TRAUMA CHRONIC ISSUE) Nursing and Triage Documentation Reviewed and Agree: Yes Reviewed sepsis parameters & appropriate labs ordered?: Yes System Inflammatory Response Syndrome: Not Applicable Sepsis Protocol: For patient's 13 years and over: Temp is 96.8 and below OR 101 and greater Pulse >90 BPM Resp >20/minute Acutely Altered Mental Status Are patient's symptoms suggestive of a new infection, such as: -Pneumonia -Skin, Soft Tissue -Endocarditis -UTI -Bone, Joint Infection -Implantable Device -Acute Abdominal Infection -Wound Infection -Meningitis -Blood Stream Catheter Infection -Unknown System Inflammatory Response Syndrome: Not Applicable Neurological Complaint Exam - Headache Complaint/Exam Onset: Gradual Duration: 1 DAY BUT THIS IS A CHRONIC ISSUE Symptoms Are: Still present Timing: Intermittent Episodes Lasting: Hours Worst Headache Ever: No Initial Severity: Moderate Current Severity: Moderate Location: Frontal, Temporal Character: Reports: Throbbing Aggravating: Reports: None Alleviating: Reports: None Associated Signs and Symptoms: Denies: Dizziness, Seizure, Nausea, Vomiting, Sinus pressure, Fever, Neck pain, Neck stiffness, Decreased LOC, Visual changes Related History: Reports: Similar episode Related Surgical History: Reports: None SAH Risk Factors: Reports: Hypertension Meningitis Risk Factors: Reports: None SDH Risk Factors: Reports: None Temporal Arteritis Risk Factors: Reports: Normal Head CT Within Last 12 Months: Yes Fundoscopic Exam: Present: Normal Findings Temporal Artery Tenderness: Present: None Sinus Tenderness: Present: None TMJ Tenderness: Present: None Glascow Coma Scale (see protocol): 15 Meningeal Signs Positive: No Pain on Passive Flexion-Positive Kernig's: No ROM Limited In: No Limitiations Focal Weakness: Present: None Focal Sensory Loss: Present: None Gait: Normal Nystagmus Present: No Gag Reflex Present: No Differential Diagnoses: Migraine Review of Systems - Review Of Systems Constitutional: Reports: No symptoms Eyes: Reports: No symptoms Ears, Nose, Mouth, Throat: Reports: No symptoms Respiratory: Reports: No symptoms Cardiac: Reports: No symptoms GI: Reports: No symptoms : Reports: No symptoms Musculoskeletal: Reports: No symptoms Skin: Reports: No symptoms Neurological: Reports: Headache Endocrine: Reports: No symptoms Hematologic/Lymphatic: Reports: No symptoms All Other Systems: Reviewed and Negative Past Medical History - Past Medical History Previously Healthy: No Endocrine: Reports: None Cardiovascular: Reports: Hypertension, A-Fib Respiratory: Reports: COPD, Asthma Hematological: Reports: None Gastrointestinal: Reports: None Genitourinary: Reports: None Neuro/Psych: Reports: Migraine, Anxiety, Depression Musculoskeletal: Reports: None Cancer: Reports: None Other Pertinent Past Medical History: cspine stenosis cce - Surgical History General Surgical History: Reports: Cholecystectomy - Family History Family History: Reports: Unknown - Social History Smoking Status: Current every day smoker, Light tobacco smoker Hx Substance Use: No Alcohol Screening: None Physical Exam - Physical Exam Appearance: Well-appearing, No pain distress, Well-nourished Eyes: NANDO, EOMI, Conjunctiva clear ENT: Ears normal, Nose normal, Oropharynx normal Respiratory: Airway patent, Breath sounds clear, Breath sounds equal, Respirations nonlabored Cardiovascular: RRR, Pulses normal, No rub, No murmur GI/: Soft, Nontender, No masses, Bowel sounds normal, No Organomegaly Musculoskeletal: Normal strength, ROM intact, No edema, No calf tenderness Skin: Warm, Dry, Normal color Neurological: Sensation intact, Motor intact, Reflexes intact, Cranial nerves intact, Alert, Oriented Psychiatric: Affect appropriate, Mood appropriate Physician Notification - Case Discussed Physician Notified: PMD Time of Notification: 15:40 ( SEEN PT IN ED ) Critical Care Note - Critical Care Note Total Time (mins): 0 Course - Course Hematology/Chemistry: 10/13/17 14:50 10/13/17 14:50 Orders, Labs, Meds: Lab Review 10/13/17 10/13/17 14:50 14:50 WBC 9.05 RBC 4.18 L Hgb 12.8 L Hct 38.8 L MCV 92.8 MCH 30.6 MCHC 33.0 RDW Coeff of [place] 13.1 Plt Count 194 Immature Gran % (Auto) 0.2 Neut % (Auto) 59.7 Lymph % (Auto) 28.7 [place] % (Auto) 7.4 Eos % (Auto) 3.0 Baso % (Auto) 1.0 Immature Gran # (Auto) 0.0 Neut # (Auto) 5.4 Lymph # (Auto) 2.6 [place] # (Auto) 0.7 Eos # (Auto) 0.3 Baso # (Auto) 0.1 Sodium 141 Potassium 3.5 Chloride 104 Carbon Dioxide 27 Anion Gap 13.5 BUN 11 Creatinine 0.71 Estimated GFR (MDRD) 111.00 BUN/Creatinine Ratio 15.49 Glucose 97 Calcium 9.2 Total Bilirubin 0.5 AST 11 L ALT 15 Alkaline Phosphatase 62 Total Protein 6.4 Albumin 3.3 L Globulin 3.1 Albumin/Globulin Ratio 1.06 Orders Category Date Time Status CBC W/ AUTO DIFF Stat LAB 10/13/17 14:50 Completed COMPREHENSIVE METABOLIC PANEL Stat LAB 10/13/17 14:50 Completed ESR Stat LAB 10/13/17 14:50 Received Acetaminophen [Tylenol] MEDS 10/13/17 14:54 Discontinued 1,000 mg PO ONCE STA Meperidine HCl/Pf [Demerol 50 mg/ml Vial] MEDS 10/13/17 15:52 Discontinued 50 mg IM ONCE STA Promethazine HCl [Phenergan 25 mg/ml Vial] MEDS 10/13/17 14:35 Discontinued 50 mg IM ONCE STA CT HEAD W/O CONTRAST Stat RADS 10/13/17 14:29 Completed Medications Discontinued Medications Generic Name Dose Route Start Last Admin Trade Name Freq PRN Reason Stop Dose Admin Acetaminophen 1,000 mg 10/13/17 14:54 10/13/17 15:04 Tylenol PO 10/13/17 14:55 1,000 mg ONCE STA Administration Meperidine HCl 50 mg 10/13/17 15:52 Demerol 50 Mg/Ml Vial IM 10/13/17 15:53 ONCE STA Promethazine HCl 50 mg 10/13/17 14:35 10/13/17 15:03 Phenergan 25 Mg/Ml Vial IM 10/13/17 14:36 50 mg ONCE STA Administration Vital Signs: Temp Pulse Resp BP Pulse Ox 10/13/17 14:16 97.9 F 59 L 20 151/93 H 96 Departure - Departure Time of Disposition: 16:30 (PT SEEN AT ALL TIMES WITH NURSING STAFF PMD SAW PT IN ED ) Disposition: HOME SELF-CARE Discharge Problem: Headache Instructions: Migraine Headache (ED) Condition: Good Pt referred to PMD for follow-up: Yes IPMP verified?: No Allergies/Adverse Reactions: Allergies butorphanol tartrate [From Stadol] Adverse Reaction (Verified 10/13/17 14:19) prochlorperazine edisylate [From Compazine] Adverse Reaction (Verified 10/13/17 14:19) prochlorperazine maleate [From Compazine] Adverse Reaction (Verified 10/13/17 14 :19) Home Medications: Ambulatory Orders Albuterol Sulfate [Ventolin Hfa] 2 inhaler IH QID PRN 10/22/14 Escitalopram Oxalate [Lexapro] 40 mg PO DAILY 11/11/15 Pantoprazole Sodium [Protonix] 40 mg PO BID 11/11/15 Guaifenesin [Mucinex] 1,200 mg PO DAILY PRN #30 tab-cap 11/08/16 Buspirone HCl 7.5 mg PO TID #90 tab-cap 03/20/17 Albuterol Sulfate [Ventolin Hfa] 18 gm IH DAILY 05/03/17 Amlodipine Besylate 5 mg PO DAILY 05/03/17 Aspirin 81 mg PO ONCE 05/03/17 Ipratropium/Albuterol Sulfate [Iprat-Albut 0.5-3(2.5) Mg/3 Ml] 3 ml IH DAILY Lisinopril 10 mg PO DAILY 05/03/17 Cyanocobalamin (Vitamin B-12) [Vitamin B12] 2,500 mcg PO DAILY #30 tab-cap 05/19 Rivaroxaban [Xarelto] 20 mg PO DAILY #30 tab-cap 05/19/17
[2017-10-13] MEDS ORDERED: DEMEROL 50 MG/ML VIAL IM STA (15:52)
[2017-10-13 16:07] VITALS: TEMP 99.2
[2017-10-13 16:23] VITALS: BP 126/65
== END 2017-10-13 17:40 | disposition home or self-care (01) ==
LOC: ED 14:15
DX: R51 Headache (principal); I10 Essential (primary) hypertension; F17.210 Nicotine dependence, cigarettes, uncomplicated; Z79.899 Other long term (current) drug therapy
CPT/HCPCS: 36415; 80053; 85025; 85651; 96372; 99283

== ENCOUNTER 2017-12-27 10:49 | Inpatient (IN) | payer OTHER ==
[2017-12-27] MEDS ORDERED: DEMEROL 25 MG/ML VIAL IVP STA (12:23)
[2017-12-27] MEDS ORDERED: DEMEROL 50 MG/ML SYRINGE IVP STA (12:33)
--- NOTE | 2017-12-27 14:06 | CT ---
EXAM: CT of the chest without contrast History: Short of breath, cough, history smoking Comparison: Chest radiograph 03/06/2017, chest CT 03/06/2017, chest CT 07/01/2011 Technique: Multiplanar CT images through the thorax were obtained without the administration of IV c ontrast. Findings: Heart size is normal. No pericardial effusion. Coronary artery calcifications. Annular calcifications of the aortic valve. No thoracic aortic aneurysm. No axillary lymphadenopathy. No p athologically enlarged mediastinal lymph nodes. Evaluation for hilar lymph nodes is limited due to t he lack of contrast administration. No bulky hilar adenopathy is seen. Diffuse bronchial wall thick ening. No consolidated pneumonia. No pleural fluid and no pneumothorax. Mild to moderate emphysema again noted. A few scattered bilateral micronodules measuring between 3-5 mm.: Within the visualized upper abdomen, no acute findings. No acute osseous abnormalities. The Impression: 1. Emphysema. 2. A few scattered micronodules probably infectious or inflammatory etiology. Recommend follow-up c hest CT in 6 months to document stability. 3. Coronary artery disease.
[2017-12-27 14:13] VITALS: BMI 20.8
[2017-12-27] MEDS ORDERED: DUONEB NEB PRN (14:46)
[2017-12-27] MEDS ORDERED: PROAIR HFA IH PRN (14:46)
[2017-12-27] MEDS ORDERED: TYLENOL #3 TAB PO STA (16:57)
[2017-12-27] MEDS ORDERED: NON-FORMULARY MEDICATION (Rivaroxaban [Xarelto] 20 MG) PO SCH (17:00)
[2017-12-27] MEDS ORDERED: NON-FORMULARY MEDICATION (Gabapentin [Gabapentin] 1,200 MG) PO SCH (17:00)
[2017-12-27] MEDS: NON-FORMULARY MEDICATION (Buspirone Hcl [Buspirone Hcl] 7.5 MG) PO SCH ×2 (17:22→21:11)
[2017-12-27] MEDS: NEURONTIN PO SCH ×2 (17:23→21:10)
[2017-12-27] MEDS: BETAPACE PO SCH ×2 (17:24→21:10)
[2017-12-27] MEDS: XARELTO PO SCH (17:24)
[2017-12-27] MEDS: NICODERM 21 MG TD SCH (18:32)
[2017-12-27] MEDS ORDERED: XANAX PO SCH (21:00)
[2017-12-27] MEDS ORDERED: NON-FORMULARY MEDICATION (Guaifenesin [Mucinex] 1,200 MG) PO SCH (21:00)
[2017-12-27] MEDS: MUCINEX PO SCH (21:10)
[2017-12-27] MEDS: [UNRECOGNIZED DRUG - OTHER] PO PRN (21:11)
[2017-12-27] MEDS: ACETAMINOPHEN WITH CODEINE PO PRN (21:11)
[2017-12-27] MEDS ORDERED: ROCEPHIN ONE (22:57)
[2017-12-27] MEDS ORDERED: ROCEPHIN 2 GM in SODIUM CHLORIDE 50 ML IV SCH (23:00)
[2017-12-27] MEDS ORDERED: DEMEROL 25 MG/ML VIAL IM STA (23:15)
[2017-12-28] MEDS: ACETAMINOPHEN WITH CODEINE PO PRN ×3 (05:12→22:38)
[2017-12-28] MEDS: [UNRECOGNIZED DRUG - OTHER] PO PRN ×3 (05:12→22:38)
[2017-12-28] MEDS ORDERED: PROTONIX PO PRN (06:30)
[2017-12-28] MEDS: LEXAPRO PO SCH (08:40)
[2017-12-28] MEDS: NEURONTIN PO SCH ×4 (08:40→22:36)
[2017-12-28] MEDS: NORVASC PO SCH (08:40)
[2017-12-28] MEDS: CYANOCOBALAMIN PO SCH (08:40)
[2017-12-28] MEDS: ZESTRIL PO SCH (08:40)
[2017-12-28] MEDS: MUCINEX PO SCH ×2 (08:40→22:36)
[2017-12-28] MEDS: BETAPACE PO SCH ×2 (08:40→22:36)
[2017-12-28] MEDS: NON-FORMULARY MEDICATION (Buspirone Hcl [Buspirone Hcl] 7.5 MG) PO SCH ×3 (08:40→22:37)
[2017-12-28] MEDS ORDERED: ESCITALOPRAM OXALATE 40 MG PO SCH (09:00)
[2017-12-28] MEDS ORDERED: NON-FORMULARY MEDICATION (Amlodipine Besylate [Amlodipine Besylate] 10 MG) PO SCH (09:00)
[2017-12-28] MEDS: XANAX PO SCH (09:29)
[2017-12-28] MEDS ORDERED: DEMEROL 50 MG/ML SYRINGE ONE (09:44)
[2017-12-28] MEDS: DEMEROL 100 MG/ML SYRINGE IM STA ×2 (09:46→09:50)
[2017-12-28] MEDS: NICODERM 21 MG TD SCH (13:33)
[2017-12-28] MEDS: XARELTO PO SCH (17:12)
[2017-12-28] MEDS ORDERED: ROCEPHIN 2 GM in SODIUM CHLORIDE 50 ML IV SCH (21:00)
[2017-12-28] MEDS ORDERED: ROCEPHIN 2 GM in SODIUM CHLORIDE 100 ML IV SCH (21:00)
[2017-12-29] MEDS: DEMEROL 25 MG/ML VIAL IM PRN ×3 (00:47→23:40)
[2017-12-29] MEDS: [UNRECOGNIZED DRUG - OTHER] PO PRN ×2 (07:16→14:33)
[2017-12-29] MEDS: ACETAMINOPHEN WITH CODEINE PO PRN ×2 (07:16→14:33)
[2017-12-29] MEDS ORDERED: DEMEROL 25 MG/ML VIAL IM ONE (08:15)
[2017-12-29] MEDS: BETAPACE PO SCH ×2 (08:37→22:00)
[2017-12-29] MEDS: NON-FORMULARY MEDICATION (Buspirone Hcl [Buspirone Hcl] 7.5 MG) PO SCH ×3 (08:37→22:00)
[2017-12-29] MEDS: NEURONTIN PO SCH ×4 (08:37→22:01)
[2017-12-29] MEDS: MUCINEX PO SCH ×2 (08:37→22:01)
[2017-12-29] MEDS: LEXAPRO PO SCH (08:37)
[2017-12-29] MEDS: NORVASC PO SCH (08:38)
[2017-12-29] MEDS: ZESTRIL PO SCH (08:38)
[2017-12-29] MEDS: XANAX PO SCH (08:38)
[2017-12-29] MEDS: NICODERM 21 MG TD SCH (08:39)
[2017-12-29] MEDS: CYANOCOBALAMIN PO SCH (09:15)
[2017-12-29] MEDS: XARELTO PO SCH (17:06)
[2017-12-29] MEDS ORDERED: ROCEPHIN 2 GM in SODIUM CHLORIDE 50 ML IV SCH (21:00)
[2017-12-30] MEDS: DEMEROL 25 MG/ML VIAL IM PRN ×2 (06:51→13:06)
[2017-12-30] MEDS: XANAX PO SCH (09:07)
[2017-12-30] MEDS: NON-FORMULARY MEDICATION (Buspirone Hcl [Buspirone Hcl] 7.5 MG) PO SCH (09:07)
[2017-12-30] MEDS: NEURONTIN PO SCH ×2 (09:08→14:09)
[2017-12-30] MEDS: NORVASC PO SCH (09:08)
[2017-12-30] MEDS: BETAPACE PO SCH (09:08)
[2017-12-30] MEDS: LEXAPRO PO SCH (09:08)
[2017-12-30] MEDS: ZESTRIL PO SCH (09:08)
[2017-12-30] MEDS: MUCINEX PO SCH (09:09)
[2017-12-30] MEDS: NICODERM 21 MG TD SCH (09:09)
--- NOTE | 2017-12-30 10:07 | DI ---
Exam: Chest two-view History: Follow up Ends: Normal cardiomediastinal contours. Normal pulmonary vasculature. The lungs hyperexpanded. N o infiltrative opacities. Atherosclerotic calcification of the aorta. No acute chest wall abnormali ty. Impression: Chronic obstructive pulmonary disease. No acute abnormalities.
[2017-12-30 10:22] VITALS: BP 114/76; TEMP 98
[2017-12-30] MEDS: CYANOCOBALAMIN PO SCH (10:49)
--- NOTE | 2018-01-04 12:42 | HP ---
DATE OF SERVICE: 12/27/17 CHIEF COMPLAINT: Headache, cough and wide fluctuation of blood pressure, difficulty taking a deep breath and more post nasal drainage and sinus problems. HISTORY OF PRESENT ILLNESS: The patient has chronic headaches described as migraine and had been for years. He had been to several places who specializes in headaches. He also follows with psychiatrist for his other problems. He claimed that his headache began a week ago and had not remitted. He also not has cough with nasal drainage as well as problems taking a deep breath and blood pressure fluctuating. On the blood pressure was 189/102 and sometimes the blood pressure is markedly lower close to 100 systolic. The patient on examination has photophobia and is using his CPAP. He had been on BIPAP for sometime. The patient however continues to smoke and had been advised several times to stop the habit but had no succeeded until today. The lungs had diminished breath sounds but no wheezing. Heat is audible and regular. His blood pressure at the office was 104/ 50, oxygen saturation 98 at 4 liters of oxygen on BIPAP, respiratory rate 20. He was advised admission for further treatment. He did have some tenderness in the maxillary sinus areas as well as frontal more on the left side. PAST PERSONAL HISTORY: This patient had been admitted to a [facility] because of respiratory failure and had been intubated. This again happened the next time. The patient is using a BIPAP. This patient continued to smoke despite of the advise to stop. He also had atrial fibrillation but was converted after cardioversion. He had migraine headaches for years. He had been to neurologist for the migraine. The patient however did not follow through with them but he claims that the headache was not any better. He also had history of depression of anxiety and is being treated by a psychiatrist in [place]. The patient had cholecystectomy several years ago. He had endoscopy and colonoscopy a long time ago. The patient claimed to have had asthma when he was young. Also positive for sleep apnea. History of previous pneumonitis. FAMILY HISTORY: Father had malignancy melanoma, in the [place] area and metastasized Mother had lung carcinoma with brain metastasis SOCIAL HISTORY: The patient is and resides with his . 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 His is also a retired high school librarian. Continues to smoke despite of the advise given to stop. He drinks alcohol socially. He denies any illicit drug use now. MEDICATIONS: Albuterol sulfate two puff four times a day as needed Lexapro 40mg daily Mucinex 1200mg twice a day Buspirone 7.5mg three times a day Gabapentin 1200mg four times a day Lisinopril 10mg daily Combivent 3cc per nebulizer Q 4 hours PRN Xarelto 20mg daily Tylenol #4 one four times a day for a headache, the patient had been advised not to take it everyday since it doesn't prevent the headache but the patient insists on taking it. Protonix 40mg tablet daily PRN Sotalol 80mg twice a day Vitamin B12 1000mg tablet daily Alprazolam 0.5mg one to two tablets daily Amlodipine 10mg daily His blood pressure is fluctuating and I'm not sure what causes that except probably the anxiety plus also the medications, short acting beta adrenergic medication. He is also taking a Beta Jannet. Beta jannet is nonselective. ALLERGIES: Butorphanol tartrate (Stadol) Prochlorperazine edisylate (Compazine) REVIEW OF SYSTEMS: CONSTITUTIONAL: The patient had no fever or chills but has fatigue from the headaches. CORPORATE TREASURER: The patient has headache and is known to have migraine headaches for years. He has photophobia but no phonophobia. No syncopal episode but has fluctuating blood pressure. No history of seizures or seizure disorders. VISUAL: The patient has photophobia and stays in a dark room with headache. He however denies any double vision or loss of vision or blurred vision. He also denies any hemianopsia. AUDITORY: Hearing is adequate but no ringing. No pain or drainage. RESPIRATORY: The patient has cough and has shortness of breath. He is on oxygen 4 liters with BIPAP. He also has post nasal drainage and nasal congestion. He does have problems taking a deep breath. CARDIOVASCULAR: Denies any chest tightness or diaphoresis. GASTROINTESTINAL: Appetite is down. He had not been eating very much during this episode of the headache. He has no problem swallowing solids or liquids and no abdominal pain. GENITOURINARY: The patient denies any pain on urination or any nocturnal frequency. He does not have any urgency or hesitancy. MUSCULOSKELETAL: The patient does have some joints, he is taking pain medication that probably helps with the pain. 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 VITAL SIGNS: Temperature 98.3, pulse 50, blood pressure left 108/61 and right 101/68, respiratory rate 16 and oxygen saturation 93 at 4 liters of BIPAP. 6'1 and 158 pounds. BMI is 20.8. HEAD: Unremarkable, no active dermitis. FACE: Symmetrical and equal with no facial weakness. There is some tenderness in the left maxillary sinus areas as well as left frontal to palpation. EYES: Pupils equal/reactive to light. Conjunctivae slightly pale. Sclerae not icteric. MOUTH: Unremarkable THROAT: No inflammation, tumors or exudate. NECK: No masses. No bruit. No tenderness. No rigidity. EARS: External unremarkable CHEST: Symmetrical and equal with good expansion LUNGS: Breath sounds are diminished on both sides and course with no rales of wheezing. HEART: Audible and regular with good tones. No murmurs. Slow. ABDOMEN: Soft with no remarkable tenderness. No guarding. Bowel sounds are active. No masses palpable. EXTERNAL GENITALIA: not examined RECTAL: Not performed LOWER EXTREMITIES: Symmetrical and equal. No significant edema. Anterior tibials are palpable. UPPER EXTREMITIES: Symmetrical and equal. ASSESSMENT: 1. Intractable headache 2. Exacerbation of chronic bronchitis or COPD 3. Fluctuating blood pressure 4. Hypertension 5. Depression 6. History of anxiety 7. Mild anemia probably B complex deficiency 8. History of cardiac arrhythmia on Sotalol- atrial fibrillation- converted after cardioversion. TIME SPENT: GREATER THAN 65 MINUTES MTDD
--- NOTE | 2018-01-04 12:45 | DS ---
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 His blood pressure had been fluctuating and was high as 189/102 at home. HOSPITAL COURSE: Examination revealed an alert individual who has a headache with photophobia. Pupils were reactive and equal in size and round. Lungs have diminished breath sounds in both sides with coarse breath sounds, no rales or wheezing. Heart is audible and regular with somewhat bradycardic. Vital signs on admission on 12/27/17 showed a temperature 98.3, pulse rate 50, blood pressure 108/61, left; 101/68 right. Respiratory rate 16, oxygen saturation 93 with bipap. Gram stain sputum 1+ WBC, 1+ gram positive cocci. Sputum culture moderate growth with normal deven. Blood culture negative after four days. The patient's initial CBC showed mild anemia, 13.2 hemoglobin, 39.7 hematocrit, MCV 94.3, MCH 31.4, p02 33 upper normal 31. The rest of the chemistries normal. Urinalysis unremarkable. The patient's chest CT showed emphysema and few scattered micronodules probably infectious or inflammatory in etiology. Recommend followup CT in 6 months, coronary artery disease. Chest x-ray on the day of discharge 12/30/17 showed chronic obstructive pulmonary disease, no acute abnormalities. Repeat labs done on 12/30/17 showed hemoglobin of 12.5, hematocrit 37.9, MCV 95, MCH 31.3. The c02 now is down to 30 , normal. The rest are unremarkable. As the patient was continued on his previous medications, he was given Demerol 50 mg intravenously initially but headache persisted. He also was given Ceftriaxone 2 gm intravenously daily. The Tylenol #4 was discontinued and Demerol was given every four hours p.r.n. The patient continues to have headaches until the day before discharge. The patient on the day of discharge was alert, feeling better. The headache has decreased remarkably. He had used a nicotine patch while in the hospital. I did advise him that his chest x-ray does not show any acute processes now, that his temperature had remained normal and his blood pressure has not fluctuated remarkably. I do not have a good explanation of the wide fluctuation of the blood pressure. Vital signs on discharge 10 o'clock in the morning showed a temperature 98, pulse 60, BP 114/76, respiratory rate 20, oxygen saturation 92 on BIPAP. I had the pulse oximeter with me and I told him to take his BIPAP off, his oxygen saturation on room air was 91, lowest. It goes up to 92 or 93. I told him to take three deep breaths and blow out slowly and his oxygen saturation did go up to 96. I emphasized to him that the smoking would most likely help him and maybe be able to not use the oxygen except maybe a night. Lungs have breath sounds that are better. I can hear the breath sounds better, still with some coarseness on the left side but no rales or wheezing. Heart is audible and regular and somewhat bradycardic. This is probably due to the medication. He told me that he and his and family are going to [place] for one week beginning Monday. I reemphasized to him that to never resume smoking, to take all of his previous medications, eat regular meals and walk as much as possible. I told him that there is not a very good doctor who can help him very much if he continues to smoke and could help himself tremendously if he would not resume smoking. If he does resume smoking, I believe would shortened his lifespan. Tenderness in the frontomaxillary sinus areas on the left side is less. ASSESSMENT: 1. INTRACTABLE HEADACHE, IMPROVED. 2. FRONTOMAXILLARY SINUS AREAS, LEFT MORE THAN RIGHT, IMPROVED. 3. ACUTE EXACERBATION OF CHRONIC BRONCHITIS, IMPROVED. 4. HYPERTENSION, CONTROLLED AND STABLE. I HOPE HE STOPS SMOKING SO MAYBE SOME OF THE BETA AGONIST MEDICATION CAN BE DECREASED OR REMOVED. IF HIS CARDIAC ARRHYTHMIA IS STABLE, PROBABLY DECREASE THE BETA ARCHANA. PROGNOSIS: Guarded to poor. TIME SPENT: GREATER THAN 30 MINUTES MTDD
== END 2017-12-30 14:35 | disposition home or self-care (01) | DRG 192 ==
LOC: MEDSURG A 10:49
PROVIDERS: ADMIT General Practice; ATTEND General Practice
DX: J44.1 Chronic obstructive pulmonary disease with (acute) exacerbation (principal); I10 Essential (primary) hypertension; F41.8 Other specified anxiety disorders; D64.9 Anemia, unspecified
CPT/HCPCS: 36415; 80053; 81001; 85025; 87040; 87070; 87205; 93005; 93010; 97802

== ENCOUNTER 2018-03-07 14:23 | Outpatient (CLI) | payer OTHER | END 2018-03-07 14:24 | disposition home or self-care (01) | LOC: RHC-LAB 14:23 | PROVIDERS: ATTEND General Practice | DX: I10 Essential (primary) hypertension (principal); J44.9 Chronic obstructive pulmonary disease, unspecified; I48.0 Paroxysmal atrial fibrillation; G47.00 Insomnia, unspecified; Z72.0 Tobacco use; Z79.899 Other long term (current) drug therapy; Z12.5 Encounter for screening for malignant neoplasm of prostate | CPT/HCPCS: 36415; 80053; 80061; 85025 ==

== ENCOUNTER 2018-05-30 21:54 | Emergency (ER) ==
[2018-05-30 22:07] VITALS: BP 116/76; TEMP 96.7; BMI 21.1
[2018-05-30] MEDS ORDERED: DILAUDID 1 MG/ML SYRINGE ONE (23:30)
--- NOTE | 2018-05-31 06:17 | ED.PDOC ---
General ED Provider: Dr. JOSE LUIS HIDALGO Chief Complaint: Fall Stated Complaint: states that while using inhaler, got dizzy and fell, landing on hardwood floor on right buttock. Also Hit head on door Frame. Sustined a laceration with bleeding on the posterior aspect of the scalp. Complains of headache but denies neck/or back pain. Denies any Loss of conciousness. Time Seen by Physician: 22:00 Mode of Arrival: Walk-In Information Source: Patient, Family Exam Limitations: No limitations Primary Care Provider: [facility] Nursing and Triage Documentation Reviewed and Agree: Yes Does patient meet sepsis criteria?: No System Inflammatory Response Syndrome: Not Applicable Sepsis Protocol: For patient's 13 years and over: Temp is 96.8 and below OR 101 and greater Pulse >90 BPM Resp >20/minute Acutely Altered Mental Status Are patient's symptoms suggestive of a new infection, such as: -Pneumonia -Skin, Soft Tissue -Endocarditis -UTI -Bone, Joint Infection -Implantable Device -Acute Abdominal Infection -Wound Infection -Meningitis -Blood Stream Catheter Infection -Unknown Review of Systems - Review Of Systems Constitutional: Reports: No symptoms Eyes: Reports: No symptoms Ears, Nose, Mouth, Throat: Reports: No symptoms Respiratory: Reports: No symptoms Cardiac: Reports: Lightheadedness GI: Reports: No symptoms : Reports: No symptoms Musculoskeletal: Reports: No symptoms Skin: Reports: Bruising Neurological: Reports: Anxiety, Headache Endocrine: Reports: No symptoms Hematologic/Lymphatic: Reports: No symptoms All Other Systems: Reviewed and Negative Past Medical History - Past Medical History Previously Healthy: No Endocrine: Reports: None Cardiovascular: Reports: Hypertension, A-Fib Respiratory: Reports: COPD, Asthma Hematological: Reports: None Gastrointestinal: Reports: None Genitourinary: Reports: None Neuro/Psych: Reports: Migraine, Anxiety, Depression Musculoskeletal: Reports: None Cancer: Reports: None Other Pertinent Past Medical History: cspine stenosis cce - Surgical History General Surgical History: Reports: Cholecystectomy - Family History Family History: Reports: Unknown - Social History Smoking Status: Current every day smoker, Light tobacco smoker Hx Substance Use: No Alcohol Screening: None - Immunizations Tetanus Shot up to Date: Yes (2015) Physical Exam - Physical Exam Appearance: Ill-appearing Ill-appearing: Mild Pain Distress: Severe Eyes: NANDO ENT: Ears normal Neck: Supple Cardiovascular: RRR GI/: Soft, Nontender, No masses, Bowel sounds normal, No Organomegaly Skin: Warm, Dry Neurological: Alert, Oriented Psychiatric: Anxious Interpretation - Radiology Interpretation Radiology Interpretation By: Radiologist Radiology Results: Negative Exam Interpreted: CT Scan - Township Supervisor Time of Township Supervisor Interpretation: 22:30 Rate: Normal Rhythm: Sinus Ectopy: None - EKG Interpretation Time of EKG #1: 22:45 Rate: Normal Rhythm: Sinus Ectopy: None [place]: NL ST Segment: Normal Interpretation: incomplete RBBB Procedures - Laceration/Wound Repair occipital sclap Wound Description: Linear Wound Length (cm): 4 Wound Width: 0.2 Wound Depth: 0.3 Wound Explored: Clean Wound Irrigated: No Wound Prep: Saline, Hibiclens Wound Repaired With: Delta Number of Sutures: 7 Sterile Dressing Applied?: Yes Splint Applied?: No Sling Applied?: No Progress: Tolorated well Critical Care Note - Critical Care Note Total Time (mins): 0 Course - Course Hematology/Chemistry: 05/30/18 22:40 05/30/18 22:40 Orders, Labs, Meds: Lab Review 05/30/18 05/30/18 22:40 22:40 WBC 8.83 RBC 4.47 L Hgb 13.8 L Hct 41.5 L MCV 92.8 MCH 30.9 MCHC 33.3 RDW Coeff of [place] 12.9 Plt Count 240 Immature Gran % (Auto) 0.3 Neut % (Auto) 63.1 Lymph % (Auto) 25.9 [place] % (Auto) 8.3 Eos % (Auto) 1.5 Baso % (Auto) 0.9 Immature Gran # (Auto) 0.0 Neut # (Auto) 5.6 Lymph # (Auto) 2.3 [place] # (Auto) 0.7 Eos # (Auto) 0.1 Baso # (Auto) 0.1 Sodium 137.8 Potassium 2.95 L Chloride 102.5 Carbon Dioxide 30.1 H Anion Gap 8.15 BUN 14.3 Creatinine 0.60 Estimated GFR (MDRD) 135.00 BUN/Creatinine Ratio 23.83 Glucose 118.8 H Calcium 9.20 Total Bilirubin 0.51 AST 21.4 ALT 14.8 Alkaline Phosphatase 61.5 Total Creatine Kinase 41.3 L CK-MB (CK-2) Cancelled Troponin I < 0.012 Total Protein 7.24 Albumin 4.24 Globulin 3.00 Albumin/Globulin Ratio 1.41 Orders Category Date Time Status EKG-(ED ONLY) Stat CARDIO 05/30/18 22:40 Completed CBC W/ AUTO DIFF Routine LAB 05/30/18 22:40 Completed COMPREHENSIVE METABOLIC PANEL Routine LAB 05/30/18 22:40 Completed CREATINE KINASE Routine LAB 05/30/18 22:40 Completed TROPONIN I Routine LAB 05/30/18 22:40 Completed Hydromorphone HCl [Dilaudid 1 mg/ml Syringe] MEDS 05/30/18 23:30 Discontinued 1 mg .ROUTE .STK-MED ONE CT HEAD W/O CONTRAST Stat RADS 05/30/18 22:40 Completed Vital Signs: Temp Pulse Resp BP Pulse Ox 05/30/18 21:54 96.7 F L 83 20 116/76 94 L Departure - Departure Time of Disposition: 23:59 Disposition: HOME SELF-CARE Discharge Problem: Scalp laceration Qualifiers: Encounter type: initial encounter Qualified Code(s): S01.01XA - Laceration without foreign body of scalp, initial encounter Headache Qualifiers: Headache type: tension-type Headache chronicity pattern: acute headache Intractability: not intractable Qualified Code(s): G44.209 - Tension-type headache, unspecified, not intractable Instructions: Laceration (ED), Hypokalemia (ED) Condition: Stable Pt referred to PMD for follow-up: Yes IPMP verified?: No Additional Instructions: follow up with PCP. Have adenike removed in 7-10 days. continue home headache medications. return if condition worsens or if wound develops infection. push fluids to control dizziness. Prescriptions: Potassium Chloride 20 meq PO BID #30 tablet.er Allergies/Adverse Reactions: Allergies butorphanol tartrate [From Stadol] Adverse Reaction (Verified 05/30/18 22:03) prochlorperazine edisylate [From Compazine] Adverse Reaction (Verified 05/30/18 22:03) prochlorperazine maleate [From Compazine] Adverse Reaction (Verified 05/30/18 22 :03) Home Medications: Ambulatory Orders Albuterol Sulfate [Ventolin Hfa] 2 inhaler IH QID PRN 10/22/14 Escitalopram Oxalate [Lexapro] 40 mg PO DAILY 11/11/15 Guaifenesin [Mucinex] 1,200 mg PO BID #30 tab-cap 11/08/16 Buspirone HCl 7.5 mg PO TID #90 tab-cap 03/20/17 Ipratropium/Albuterol Sulfate [Iprat-Albut 0.5-3(2.5) mg/3 ml] 3 ml IH Q4H PRN 05/03/17 Lisinopril 10 mg PO DAILY 05/03/17 Rivaroxaban [Xarelto] 20 mg PO 1700 #30 tab-cap 05/19/17 Alprazolam 1 - 2 tab PO BEDTIME #60 tab-cap 12/27/17 Cyanocobalamin (Vitamin B-12) [Vitamin B-12] 1 tab PO DAILY 12/27/17 Sotalol HCl [Sotalol] 80 mg PO Q12H 12/27/17 Potassium Chloride 20 meq PO BID #30 tablet.er 05/31/18 Disposition Discussed With: Patient, Family
--- NOTE | 2018-05-31 07:08 | CT ---
EXAM: CT of the head without contrast History: Head trauma. Comparison: Head CT 10/13/2017 Technique: Multiplanar CT images through the head were obtained without the administration of IV con trast Findings: The visualized paranasal sinuses and mastoid air cells are clear in general. No acute jasper varial abnormalities. Intracranially the ventricular and cisternal spaces are normal in size, shape and configuration for a patient of this age. No dominant mass or midline shift. No hydrocephalous. No acute intracranial hemorrhage or abnormal extraaxial fluid collections. Impression: No acute intracranial process
== END 2018-05-30 23:59 | disposition home or self-care (01) ==
LOC: ED 21:54
DX: S01.01XA Laceration without foreign body of scalp, initial encounter (principal); G44.209 Tension-type headache, unspecified, not intractable; R42 Dizziness and giddiness; W19.XXXA Unspecified fall, initial encounter; E87.6 Hypokalemia; F17.210 Nicotine dependence, cigarettes, uncomplicated; Z79.899 Other long term (current) drug therapy
CPT/HCPCS: 36415; 80053; 82550; 84484; 85025; 93005; 93010; 96372; 99283

== ENCOUNTER 2018-06-29 15:49 | Inpatient (IN) ==
--- NOTE | 2018-06-29 17:18 | CT ---
EXAM: CT scan of the chest without contrast HISTORY: Cough TECHNIQUE: Helical imaging of the chest was performed without contrast. 5 mm thin axial images and coronal and sagittal reconstructions were provided for interpretation. Comparison 12/27/2017 CT scan of the chest. FINDINGS: Emphysematous changes are seen within the lungs. Patchy opacities are seen in the left up per lobe of the lung seen on axial image number 30 and 33. There is no consolidation. Additional pa tchy opacity is identified within the posterior right upper lobe of the lung seen on axial image numb er 29. There is stable appearance of a subpleural pulmonary nodule seen in the right lower lobe of t he lung seen on axial image number 37 measuring 6 mm maximum. There is no pleural effusion. No mediastinal abnormalities are seen. The heart is normal size. There is atherosclerotic disease o f the thoracic aorta and coronary arteries. No lytic or blastic lesions are seen within the osseous structures. IMPRESSION: Patchy infiltrates are seen in the upper lobes of the lungs bilaterally as described abo ve may represent early pneumonia. Pulmonary emphysema.
[2018-06-29] MEDS ORDERED: MORPHINE 2 MG/ML SYRINGE IM STA (20:25)
[2018-06-29] MEDS ORDERED: NEURONTIN PO SCH (21:00)
[2018-06-29] MEDS ORDERED: MAXIPIME IV ONE (21:09)
[2018-06-29] MEDS: NEURONTIN PO SCH (21:17)
[2018-06-29] MEDS: MUCINEX PO SCH (21:17)
[2018-06-29] MEDS: BUSPAR PO SCH (21:18)
[2018-06-29] MEDS: BETAPACE PO SCH (21:18)
[2018-06-29] MEDS: XANAX PO SCH (21:45)
[2018-06-29] MEDS ORDERED: INFUVITE ADULT IV ONE (21:59)
[2018-06-29] MEDS: MAXIPIME 2 GM in SODIUM CHLORIDE 100 ML IV SCH ×2 (22:24→22:30)
[2018-06-29] MEDS: INFUVITE ADULT 10 ML in D5%-1/2NS-KCL 20 MEQ/L IV SOL 1,000 ML IV SCH (22:25)
[2018-06-30] MEDS: NEURONTIN PO SCH ×3 (03:00→17:15)
[2018-06-30] MEDS ORDERED: MAXIPIME IV ONE (04:37)
[2018-06-30] MEDS: MAXIPIME 2 GM in SODIUM CHLORIDE 100 ML IV SCH ×3 (04:41→20:47)
[2018-06-30] MEDS ORDERED: MORPHINE 2 MG/ML SYRINGE IM STA ×2 (04:55→12:18)
[2018-06-30] MEDS: PROTONIX PO SCH (05:49)
[2018-06-30] MEDS: MUCINEX PO SCH ×2 (08:50→20:47)
[2018-06-30] MEDS: BETAPACE PO SCH ×2 (08:50→20:48)
[2018-06-30] MEDS: BUSPAR PO SCH ×2 (08:50→20:47)
[2018-06-30] MEDS: NORVASC PO SCH (08:50)
[2018-06-30] MEDS: LEXAPRO PO SCH (08:51)
[2018-06-30] MEDS ORDERED: XANAX PO SCH (09:00)
[2018-06-30] MEDS ORDERED: INFUVITE ADULT IV ONE (12:20)
[2018-06-30] MEDS: INFUVITE ADULT 10 ML in D5%-1/2NS-KCL 20 MEQ/L IV SOL 1,000 ML IV SCH (12:30)
[2018-06-30] MEDS: XARELTO PO SCH (17:16)
[2018-06-30] MEDS: MORPHINE 2 MG/ML SYRINGE IM PRN (18:25)
[2018-06-30] MEDS: XANAX PO SCH (20:47)
[2018-07-01] MEDS: NEURONTIN PO SCH ×5 (00:31→23:00)
[2018-07-01] MEDS: MORPHINE 2 MG/ML SYRINGE IM PRN ×4 (01:57→21:12)
[2018-07-01] MEDS ORDERED: INFUVITE ADULT IV ONE ×2 (02:00→13:32)
[2018-07-01] MEDS: INFUVITE ADULT 10 ML in D5%-1/2NS-KCL 20 MEQ/L IV SOL 1,000 ML IV SCH ×2 (02:02→16:26)
[2018-07-01] MEDS: MAXIPIME 2 GM in SODIUM CHLORIDE 100 ML IV SCH ×3 (04:15→20:07)
[2018-07-01] MEDS: PROTONIX PO SCH (05:32)
[2018-07-01] MEDS: BUSPAR PO SCH ×2 (08:23→20:07)
[2018-07-01] MEDS: LEXAPRO PO SCH (08:24)
[2018-07-01] MEDS: NORVASC PO SCH (08:24)
[2018-07-01] MEDS: BETAPACE PO SCH ×2 (08:24→20:08)
[2018-07-01] MEDS: MUCINEX PO SCH ×2 (08:24→20:08)
[2018-07-01] MEDS: XARELTO PO SCH (17:04)
[2018-07-01] MEDS: TYLENOL PO PRN (20:07)
[2018-07-01] MEDS: XANAX PO SCH (20:08)
[2018-07-02] MEDS: MORPHINE 2 MG/ML SYRINGE IM PRN ×2 (03:15→09:07)
[2018-07-02] MEDS ORDERED: INFUVITE ADULT IV ONE (04:38)
[2018-07-02 04:50] VITALS: TEMP 97.8
[2018-07-02] MEDS: MAXIPIME 2 GM in SODIUM CHLORIDE 100 ML IV SCH ×2 (05:21→12:25)
[2018-07-02] MEDS: INFUVITE ADULT 10 ML in D5%-1/2NS-KCL 20 MEQ/L IV SOL 1,000 ML IV SCH (05:22)
[2018-07-02] MEDS: NEURONTIN PO SCH ×2 (05:28→12:25)
[2018-07-02] MEDS: PROTONIX PO SCH (05:30)
--- NOTE | 2018-07-02 08:13 | PCM.PROG ---
Subjective: 67 yo CM hospital day 4 w/ pneumonia and chronic migraine. I have been asked to cover for the patient while Dr. Ireland is out of office/unavailable. I have reviewed available documentation within the computer. As of completion of this note, the dictation from H+P 06/29/18 and progress notes from 06/30 and 07/01 were unavailable to me. Check out from Dr. Ireland yesterday am noted pneumonia in patient on abx. I reviewed chart and he was on cefepime, which is a good Beta lactam but he is not on macrolide or doxy. With history of tachyarrhythmia I would suggest that he has a contraindication to macrolide (QT prolongation) and I would add doxycycline to cefdinir for discharge. Nursing notes reviewed patient arrived with WC and nasal canula in place, no IV access had been obtained. EKG was reported as NSR (not available to me this am) and that he had migraine and CT scan showed possible early pneumonia. Sputum/blood cultures/ urine evaluation was completed. Remainder of notes from that point onward have dealt primarly with migraine/DAVIDSON which seems chronic. No brain imaging, no med changes other than routine/frequent morphine admin. 06/30 04:56 2mg/ml given, 05 :09 reported 8/10 DAVIDSON 2mg/ml given again, 01/22 at 13:39 1mg IM givem. CPAP regularly used, morphine not providing relief. Denied N/V/D/abd pain to nurses , no fever. Was asked to ambulate. Dr. Ireland made rounds 18:13 06/30/18 CPAP on , morphine scheduled 1 mg q 6 hours. 18:25 DAVIDSON 9/10 and morphine given, 02:30 on 07/01/18 9/10 DAVIDSON morphine given 09:33 9/10 DAVIDSON morphine given, 15:08 9/10 morphine given. last night around 20:17 I had them add tylenol 500 TID. 21:16 asked again for morphine as DAVIDSON 10/10. This am DAVIDSON 10/10, pain meds frequently asked for q 4-6 hours. I looked at overnight vitals/I+O. He has had 3 voids in last 24 hours, volume not accurate. He had 100% of his breakfast, 60% of his dinner and none of his lunch yesterday. Weight at 151 lb, no edema, no ascites, no major changes in weight. HR this am was 55 but otherwise he has regularly stayed 66-79. Afebrile throughout entire hospital stay. O2 91-100. He said that he could not have been at 100, I noted multiple examples of this in his record. He has been between RA/NC/Bipap and CPAP. 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 EKG was not available for me to evaluate this am. Sputum culture normal deven, Blood culture negative x 48 hours. WBC last check 11.05, hgb stable 12.8, plt 202 and okay. The patient CMP showed 139.9 sodium, 4.04 potassium. CO2 30 and okay. Creatinine 0.47 and glucose 90.6. BNP was negative at 113, procalc was negative at admit <0.05. UA was negative, flu was negative. I checked Olaf on patient outpatient x2 [id number] and [id number] and there was no data for the patient which was odd. I ran a SURGEON CHIEF on him under his name, which came back negative, which was odd. I then checked outpatient records and last OV that I could access was 12/2017 which did not provide additional information. He did have a SURGEON CHIEF scanned, and it was under AMADOR. I ran it under amador and I found that he has had 120 tylenol 4 filled q 28-30 days for ~1 year, as well as xanax and ambien more sporadically. CT reviewed personally, looked at the PACS images and there is some upper lobe patchy infiltrates which may be scarring, there was no consolidation. Reviewed radiology report and emphysema is present w/ questionable pneumonia. I reviewed his Head CT from 05/30/18 and no bleed, no e/ o process. I talked with him this am and he notes 6 days prior to admission he had URI symptoms, flu like symptoms, chronic migraine. On 06/29/[address] Ireland office and they told him to take him to the ER and Dr. Ireland would see the patient there. The patient reports this am that he c/o mild SOA, sore throat, rhinorrhea and increased cough, sputum production, SOA and AMRKS. He has intermittent PND and orthopnea, chronic SHARON on CPAP. Chronic pulmonary disease. Historically he has had pneumonia at least x 2. He has history of heart rhythm issues atrial flutter on xarelto chronically, on sotalol for rhythm control. Cardiology DR. Keller in [place]. Dr. [facility] in [place]. No Neurology at present. This am I checked on patient at 7:20 am. The patient was lying supine in bed with CPAP on and washrag on face. He talked in full sentences, c/o DAVIDSON /, chronic. +Photophobia, +Nausea, Left temporal, apex of head. The patient notes this is normal for his DAVIDSON. He has had botox, has had every one of the migraine treatments historically, this DAVIDSON is just like his normal DAVIDSON, no different. He notes the morphine is not helping. I checked Olaf/SURGEON CHIEF as above. SURGEON CHIEF checked under "AMADOR" as no data under Stephen. He has had tylenol 4 filled 09/15/17, 10/14/17, 11/11/17, 12/11/17, , 02/09/18, 03/09/18, 04/07/18, 05/05/18. He gets [address] head in 05/2018 negative for bleed after fall and head laceration. Patient notes that he does not feel any different now than he has over past 1 month. He notes he came into hospital due to dehydration. He has been laying in bed for 4 days, feels week/tired and feels he got sick after caring for sister age 65 after stroke. She is doing better, brain surgery, brain bleeding stopped. No use of left side. patient and family were caring for her regularly and this may have led to his weakness/illness. Patient has been in bed since arrival, he notes the way he gets over his migraine is to sleep through them. He has had them last 1/2 day to 2 weeks before. He gets them less frequently when not tired/beat up and worn out. He wanted to go home yesterday but it was not offered to him per his report. The patient trusts Dr. Ireland and wants to do what he wants to do. I noted that DR. Ireland said to keep patient until and he would d/c him. I discussed with patient with his vitals/labs/stats/ improvement that he has a higher chance of getting sicker in hospital than home. Patient feels better than last 48 hours and feels he is progressively improving. The patient feels he can make it at home and would like to go home. This am he has no c/o any symptoms except head pain. I talked to him for 30 minutes face to face to today. We discussed abx, discussed that he needs double therapy if we are dx him with pneumonia. I will d/c on Beta lactam/doxy to complete 5 day course. I will get Head CT w/o to make sure no worsening of bleed, as he is here also for chronic migraine. He notes he does not feel any different than he would at home. If CT head negative, I will prepare for d/c. Today I have reviewed his vitals since admit, I have reviewed his chart notes, his MAR, his orderes. Cefepime alone is not enough to cover for pneumonia. I will add Doxycycline at d/c as I feel he has a relative contraindication to macrolide therapy. I do not see that nebs were given during hospital stay. He did have hypok+ at admit, fluids have corrected this issue. ABG initially Primary respiratory acidosis, chronic with compensated metabolic alkalosis, personally interpreted. CT head returned negative for acute process. Today I looked at imaging, reviewed brain imaging, last OV, Olaf/SURGEON CHIEF data, talked with nurses and reviewed available documents within chart. REVIEW OF SYMPTOMS: (Positives bolded) General: weight loss, fever (before admit), chills, night sweats, fatigue, appetite loss HEENT: blurry vision, eye pain, eye discharge, dry eyes, decreased vision, sore throat tinnitus, bloody nose, hearing loss, sinus pain/pressure, ear pain/ pressure. Respiratory: shortness of breath, cough (IMPROVING) hemoptysis, wheezing, pleurisy, Cardiovascular: chest pain, PND, palpitation, edema, orthopnea (lying flat in room upon entry CPAP ON FACE), syncope, swelling of extremities Gastro: Nausea, vomiting, diarrhea, hematemesis, abdominal pain, constipation Genito: hematuria, dysuria, glycosuria, hesitancy, frequency, incontinence [place]elo: Arthralgia (chronic hips/knees/ankles/wrists), myalgia, muscle weakness, joint swelling, NSAID use Skin: rash, pruritis, sores, nail changes, skin thickening, change in wart/mole , itching, rash, new lesions, pruritus, nail changes Neuro: Migraine, numbness, ataxia, tremor, vertigo, weakness, memory loss, Irritability, dizziness Endocrine: excessive thirst, polyuria, cold intolerance, heat intolerance, goiter Psychiatric: depression, anxiety, anti-depressants, alcohol abuse, drug abuse, insomnia, change in sleep pattern and mood changes Heme/lymph: easy bruising (ON XARELTO), bleeding gums, blood clots, swollen glands, lymphedema, Allergic/immune: allergic rhinitis, hay fever, asthma, hives Objective: Vital Signs - 24 hr 07/01/18 07/01/18 07/02/18 13:26 21:22 04:49 Temperature 98 F 98.2 F 97.8 F Pulse Rate 79 68 55 L Respiratory 18 16 20 Rate Blood Pressure 108/70 132/79 123/71 O2 Sat by Pulse 100 97 93 L Oximetry 07/02/18 10:00 Temperature Pulse Rate Respiratory Rate Blood Pressure O2 Sat by Pulse 96 Oximetry Constitutional: Appearance-No acute distress, Consistent with stated age, using CPAP, talks in complete sentences, earring left ear noted. Orientation- Oriented x 3, alert Gait-unobserved. Build and Nutrition-[normal] General- Patient is pleasant and cooperative with the interview and exam. Integumentary: General-No rashes, ulcers or lesions. Palpation- Normal skin moisture/turgor. Skin is warm to touch, appropriate. Capillary refill is normal bilateral Upper and lower extremity. Head/Neck: Head- normocephalic and atraumatic. Neck- without visible/palpable lumps or pulsations. Palpation- No bony tenderness about head/neck along frontal, occipital, temporal, parietal, mastoid, jawline, zygoma, orbit or any other location. NO temporal artery tenderness. No TMJ tenderness. Neck Supple. Thyroid-No thyromegaly, no nodules Eye: Bilaterally PERRLA, EOMI. No discharge. Upper and lower eyelids are normal. Sclera/conjunctiva normal without discharge. Cornea is normal and clear. Lens is normal. Eyeball appears normal. No ciliary flushing, no conjunctival injection. ENMT: Pinna- normal without tenderness or erythema. External auditory canal Left- normal without erythema or discharge, no excessive cerumen. External auditory canal Right-normal without erythema or discharge, no excessive cerumen. TM left- [place]/pearly, normal light reflex and anatomy TM Right- [place]/ pearly, normal light reflex and anatomy Hearing Assessment-normal to conversational speech. Nose and sinus- No sinus tenderness along frontal/ maxillary region. External appearance normal and midline. Nares- bilateral quiet airflow, no discharge. Nasal mucosa- No bleeding noted and no ulcerations observed. [place], moist. Turbinates non boggy. Lips- normal color, moist without cracks/lesions Oral Cavity/Palate- hard/soft palate intact without lesions, oral mucosa pink and moist. Oropharynx- no pharyngeal erythema, Uvula midline. No post nasal drip. No exudate. Salivary glands- Non tender to palpation CHEST/LUNG: Inspection- symmetric chest wall no pectus deformity. Normal effort , no distress, no use of accessory muscles. Palpation- nontender sternum, ribline. No abnormal pulsations. Auscultation- Breath sounds diminished throughout all lung fitzgerald. Coarse tracheal sounds, bronchial sounds overlying sternum, Bronchovessicular sounds between scapulae posteriorly, vessicular breath sounds heard throughout periphery. Lungs w/ scattered rhonchi, rare scattered wheezes. Adventitious sounds- No wheezes, rales, rhonchi. CARDIOVASCULAR: Carotid artery- normal, no bruits or abnormal pulsations. Jugular vein- no pulsations. Palpation/Percussion- Normal PMI, no palpable thrill Auscultation- Regular rate and rhythm. No murmur noted in sitting, supine positions. Extremities- no digital clubbing, cyanosis, edema, increased warmth. ABDOMEN: Inspection- normal and no visible pulsations. Normal contour. Auscultation- Bowel sounds normal, no abdominal bruits. Palpation/Percussion- soft, non-tender, no rebound tenderness, no rigidity (guarding), no jar tenderness, no masses. Liver-no hepatomegaly, Spleen no splenomegaly, Hernias - none. Rectal not examined. Peripheral Vascular: Upper extremity Left- Normal temperature with pink nailbeds and no ulcerations. Upper extremity Right- Normal temperature with pink nailbeds and no ulcerations. Lower extremity- Normal temperature with pink nailbeds and no ulcerations. DP pulses 2+ bilaterally. Pedal hair intact. Normal capillary refill. Edema- No edema. Musculoskeletal: Generalized-No generalized swelling or edema of extremities, no digital clubbing or cyanosis, neurovascularly intact all four extremities. Neurological: General- Moves all 4 extremities symmetrically. Symmetrical face and body posture. Cranial nerves- individually evaluated II-XII and intact. PERRLA, Normal EOMI, visual/special senses appear intact, Face is symmetrical and normal sensation/movement, normal tongue, normal strength/posture of neck musculature. Neuropsych: Oriented- Person, place, time. (AAOx3), Mood/affect- normal and congruent. Able to articulate well. Speech-Normal speech, normal rate, normal tone, normal use of language, volume and coherence. Thought content- normal with ability to perform basic computations and apply abstract thought/reason. Associations- intact, no SI/HI, no hallucinations, delusions, obsessions. Judgment/insight- Appropriate. Memory-Recall intact, remote and recent memory intact. Knowledge- Age appropriate fund of knowledge, concentration and attention span normal. Lymphatic: Head/Neck- normal size and non tender to palpation. Axillary- normal size and non tender to palpation. Femoral and Inguinal- normal size and non tender to palpation. Laboratory Last Values WBC 11.05 K/ul (4.2-10.2) H 06/30/18 04:20 RBC 4.17 10^6/ul (4.70-6.10) L 06/30/18 04:20 Hgb 12.8 g/dl (14.0-18.0) L 06/30/18 04:20 Hct 39.1 % (42.0-52.0) L 06/30/18 04:20 MCV 93.8 fl (80.0-94.0) 06/30/18 04:20 MCH 30.7 pg (27.0-31.0) 06/30/18 04:20 MCHC 32.7 (31.8-35.4) 06/30/18 04:20 RDW Coeff of [place] 13.0 % (11.6-14.8) 06/30/18 04:20 Plt Count 202 10^3/uL (140-440) 06/30/18 04:20 Immature Gran % (Auto) 0.3 % (0.0-5.0) 06/30/18 04:20 Neut % (Auto) 72.3 06/30/18 04:20 Lymph % (Auto) 18.2 (10.0-50.0) 06/30/18 04:20 [place] % (Auto) 6.6 (0-10) 06/30/18 04:20 Eos % (Auto) 1.7 % (0.0-7.0) 06/30/18 04:20 Baso % (Auto) 0.9 % (0.0-3.0) 06/30/18 04:20 Immature Gran # (Auto) 0.0 (0.0-1.0) 06/30/18 04:20 Neut # (Auto) 8.0 K/ul (2.0-6.9) H 06/30/18 04:20 Lymph # (Auto) 2.0 K/uL (0.60-3.4) 06/30/18 04:20 [place] # (Auto) 0.7 K/uL (0.4-2.0) 06/30/18 04:20 Eos # (Auto) 0.2 K/ul (0.0-0.7) 06/30/18 04:20 Baso # (Auto) 0.1 K/uL (0-0.2) 06/30/18 04:20 Puncture Site Rbrach 06/29/18 16:32 O2 Saturation 93.0 % (95-100) L 06/29/18 16:32 ABG pH 7.336 (7.35-7.45) L 06/29/18 16:32 ABG pCO2 56.8 mmHg (35-45) H 06/29/18 16:32 ABG pO2 71.0 mmHg (85-100) L 06/29/18 16:32 ABG HCO3 30.3 (22.0-26.0) H 06/29/18 16:32 ABG Total CO2 32 (22.0-28.0) H 06/29/18 16:32 ABG Base Excess 4 (-2.0-2.0) H 06/29/18 16:32 O2 Delivery Device Nc 06/29/18 16:32 Oxygen Liter Flow 2.00 06/29/18 16:32 Sodium 139.9 mmol/L (134.5-145) 06/30/18 04:20 Potassium 4.04 mmol/L (3.5-5.1) 06/30/18 04:20 Chloride 102.3 mmol/L (98-107) 06/30/18 04:20 Carbon Dioxide 30.0 mmol/L (22-30.0) 06/30/18 04:20 Anion Gap 11.64 06/30/18 04:20 BUN 16.9 mg/dL (9-20) 06/30/18 04:20 Creatinine 0.47 mg/dL (0.60-1.10) L 06/30/18 04:20 Estimated GFR (MDRD) 179.00 mL/min 06/30/18 04:20 BUN/Creatinine Ratio 35.95 06/30/18 04:20 Glucose 90.6 mg/dL (74-106) 06/30/18 04:20 Calcium 8.79 mg/dL (8.4-10.2) 06/30/18 04:20 Total Bilirubin 0.47 mg/dL (0.2-1.3) 06/30/18 04:20 AST 29.1 U/L (17-59) 06/30/18 04:20 ALT 17.8 U/L (0-50) 06/30/18 04:20 Alkaline Phosphatase 58.0 U/L (56-119) 06/30/18 04:20 NT-Pro-B Natriuret Pep 113.000 pg/mL (0-124) 06/29/18 20:05 Total Protein 6.62 g/dL (6.3-8.2) 06/30/18 04:20 Albumin 3.70 g/dL (3.5-5.0) 06/30/18 04:20 Globulin 2.92 06/30/18 04:20 Albumin/Globulin Ratio 1.26 06/30/18 04:20 Procalcitonin < 0.05 ng/mL (<0.05) 06/29/18 16:59 Urine Color Yellow (YELLOW) 06/29/18 21:30 Urine Clarity Clear (CLEAR) 06/29/18 21:30 Urine pH 6.0 (5-9) 06/29/18 21:30 Ur Specific [place] >=1.030 (1.005-1.030) 06/29/18 21:30 Urine Protein Negative (NEGATIVE) 06/29/18 21:30 Urine Glucose (UA) Negative (NEGATIVE) 06/29/18 21:30 Urine Ketones Negative (NEGATIVE) 06/29/18 21:30 Urine Blood Negative (NEGATIVE) 06/29/18 21:30 Urine Nitrite Negative (NEGATIVE) 06/29/18 21:30 Urine Bilirubin Negative (NEGATIVE) 06/29/18 21:30 Urine Urobilinogen 1.0 (0.2) 06/29/18 21:30 Ur Leukocyte Esterase Negative (NEGATIVE) 06/29/18 21:30 Influ A Molecular Assay Negative by naat (NEGATIVE) 06/29/18 17:01 Influ B Molecular Assay Negative by naat (NEGATIVE) 06/29/18 17:01 WBC Trends 06/29/18 06/30/18 Range/Units 16:59 04:20 WBC 11.34 H 11.05 H (4.2-10.2) K/ul (1) Pneumonia Status: Acute Code(s): J18.9 - PNEUMONIA, UNSPECIFIED ORGANISM SNOMED Code(s ): 019285485 (2) Chronic migraine Status: Chronic Code(s): G43.709 - CHRONIC MIGRAINE W/O AURA, NOT INTRACTABLE , W/O STAT MIGR SNOMED Code(s): 15740373 (3) Hypokalemia Status: Resolved Code(s): E87.6 - HYPOKALEMIA SNOMED Code(s): 48501992 (4) Chronic prescription opiate use Status: Chronic Code(s): Z79.891 - INDIRECT FIRE INFANTRYMAN (CURRENT) USE OF OPIATE ANALGESIC SNOMED Code(s): 938393105 (5) Essential (primary) hypertension Status: Chronic Code(s): I10 - ESSENTIAL (PRIMARY) HYPERTENSION SNOMED Code( s): 67243713 (6) Anemia Status: Acute Code(s): D64.9 - ANEMIA, UNSPECIFIED SNOMED Code(s): 648012399 Plan: Pneumonia: Labs okay as of 06/30/18 and no additional labs ordered. CT questionable apical pneumonia. He has been on cefepime but this does not follow the typical algorithm for abx tx for pneumonia. Based on CURB-66 patient has a 6.8% 30-day mortality based on score of 2 for his age/DBP did drop a few times <60. Outpatient therapy vs short inpatient therapy would be reasonable. With his history of tachyarrhythima, rhythm control, blood thinner, I will avoid using macrolide and will d/c him from hospital on Beta lactam cefuroxime and doxycycline. he has high risk for drug resistant pneumococcus based on age. We will treat with 5 days of outpatient therapy. Would rather avoid FQ if I can avoid them. - D/C today with cefuroxime and doxycycline 5 days - Resume home meds. Hypokalemia: REsolved. NO new labs since 06/30/18. We will have him f/u with DR. Ireland this week. Essential HTN: IT appears that lisinopril was held due to hypotension and that norvasc was reduced. Will d/c home with these med changes. Chronic migraine: REsume home meds. CT head negative. Chronic Opiate Use: Atrial fibrillation: On xarelto, on sotalol. He has had some bradycardia with 1st degree AV block while in hospital. DVT Prophy: Xarelto home med continued. Diet: DASH recommended Activity: Up ad aristeo. Disposition: We talked about his symptoms and he has likely reached maximal degree of benefit from hospital stay. He is ready to go home and requested d/c home today. As of completion of my note, no H+P available, no Progress notes available. Plan originally was to have patient d/c tomorrow by PCP but the patient is requesting d/c and imaging of brain is fine, feels his breathing is better. Chronic migraine unchanged. Chronic opiate use. BP is better after changing his BP medications.
--- NOTE | 2018-07-02 08:59 | CT ---
EXAM: CT BRAIN HISTORY: Chronic migraine TECHNIQUE: CT brain without intravenous contrast. 5-mm axial sections with Reformations. COMPARISON: 05/30/2018 FINDINGS: There is mild generalized atrophy. There is mild periventricular and deep white matter low attenuati on which although nonspecific is suggestive of chronic microvascular ischemic change. These findings are stable. Brain otherwise is unremarkable without evidence of hemorrhage or large vessel distribution recent is chemic infarction. There is no suggestion of acute hydrocephalus or subdural fluid collection. No m ass or mass effect. Cranium has no acute finding. Mastoid processes are aerated. The visualized paranasal sinuses are clear. IMPRESSION: No acute intracranial process.
[2018-07-02] MEDS: BUSPAR PO SCH (09:09)
[2018-07-02] MEDS: NORVASC PO SCH (09:09)
[2018-07-02] MEDS: BETAPACE PO SCH (09:09)
[2018-07-02] MEDS: LEXAPRO PO SCH (09:09)
[2018-07-02] MEDS: MUCINEX PO SCH (09:10)
[2018-07-02] MEDS: TYLENOL PO PRN (09:43)
--- NOTE | 2018-07-02 12:39 | PN ---
DATE OF SERVICE: 06/30/18 SUBJECTIVE: The patient was seen about 6:30 p.m. His vital signs were taken earlier at 1: 28 p.m. Temperature is 98, pulse rate 65, blood pressure 102/59, respiratory rate 18, oxygen saturation 100 on BIPAP. The patient's Amlodipine has been decreased from 10 to 5 mg daily. He needs further reduction of his blood pressure medication. This probably adds to his fatigue. I had reviewed his medications and a good number of his medications does produce headache plus malaise, fatigue and insomnia. I told him that I would talk to him about these medications and his . The Gabapentin was given by Dr. Suggs, the psychiatrist, and at now 4,800 mg daily. The shake cutter, Dr. Keller. THe patient's electrocardiogram had normal sinus rhythm. No atrial fibrillation. I wonder if the Sotalol will be decreased. It might all need to be changed to a selective since Sotalol is nonselective. It may help with his pulmonary problems. He feels somewhat better today. His color is okay and is not in distress. Lungs bilateral breath sounds are diminished. No obvious rales or wheezing. Coarse breath sounds on the right lower base is noted. Heart is normal sinus rhythm. Abdomen soft and nontender. No tenderness in the calf muscles. Condition is stable. This patient has upper lobe pneumonia. His labs today showed WBC of 11,050. Moderate anemia, probably mixed. Electrolytes are normal. EGFR 179. The rest of the chemistries are normal. MTDD
--- NOTE | 2018-07-02 12:50 | PN ---
DATE OF SERVICE: 07/01/18 SUBJECTIVE: The patient today is alert, responsive and feeling better. I did make rounds with Araceli Ramriez. The patient's is alert, oriented and responsive, not cyanotic. He has movement of all extremities. LUNGS: Breath sounds are diminished in both sides. No wheezing. No rales HEART: Audible and regular with good tones. Appetite seemed to better, 100% of his breakfast today. No chest pain. I did advise the patient about the need to discuss about his medications. I will discuss that when I come back along with his . I would show to them what I am talking about and probably reduce some of the medications. A number of the medications have adverse effects such as headache including migraine headaches. Others produce insomnia. Some of the medication does produce chest pain and also increase changes of respiratory problems. The patient seemed to have a normal sinus rhythm now. I wonder if his medications can be decreased and we will discuss that with the appropriate consultants that are taking care of him. I told him that I am going out of town and Dr. Oliva will be taking care of him in my absence. He has no objections to that. I had stopped his Tylenol with Codeine because of the Tylenol. I need to know there is no antipyretic medications onboard. Still do not have the quantitative Influenza A and B. He started with his problems a week before admission with chills and muscle aches. He denied any fever but this patient has Tylenol onboard every 6 hours since he was taking the Tylenol with Codeine every 6. I am measuring also his serum testosterone level. He might need some testosterone replacement if his prostate does not show any problems with regards to prostatic carcinoma. The Gabapentin was reduced from 4,800 to 2.400 today and the Amlodipine was reduced from 8-5. The Lisinopril was not continued. His blood pressure is still low and probably needs to get up to about 120. VITAL SIGNS: Temperature 98.4, pulse 66, blood pressure 104/55, respiratory rate 18, BIPAP 91 %. It had always been 100% before. I wonder if this was taken when he was off BIPAP. PROGNOSIS: Guarded. MTDD
--- NOTE | 2018-07-02 13:13 | PCM.DC ---
Final Diagnosis: All Active Problems Pneumonia (Acute) Chronic Migraine (Chronic) Essential HTN (Chronic) Hypokalemia (Resolved) Chronic Opiate use (Chronic) Chronic anticoagulation Paroxysmal Afib (chronic) Admitted 06/29/18 Dr. Ireland Discharged 07/02/18 Dr. Oliva (1) Pneumonia Status: Acute Code(s): J18.9 - PNEUMONIA, UNSPECIFIED ORGANISM SNOMED Code(s ): 564042622 (2) Chronic migraine Status: Inactive Code(s): G43.709 - CHRONIC MIGRAINE W/O AURA, NOT INTRACTABLE , W/O STAT MIGR SNOMED Code(s): 70577286, 037891877 (3) Hypokalemia Status: Resolved Code(s): E87.6 - HYPOKALEMIA SNOMED Code(s): 37428478 (4) Chronic prescription opiate use Status: Chronic Code(s): Z79.891 - ALF (CURRENT) USE OF OPIATE ANALGESIC SNOMED Code(s): 024789976 (5) Essential (primary) hypertension Status: Chronic Code(s): I10 - ESSENTIAL (PRIMARY) HYPERTENSION SNOMED Code( s): 62757065 (6) Anemia Status: Chronic Code(s): D64.9 - ANEMIA, UNSPECIFIED SNOMED Code(s): 183337386 Reason for Hospitalization: 1. 6 Day history of URI with cough/congestion and CT consistent with upper lobe pneumonia 2. Chronic Migraine treated with chronic opiates tylenol 4. 3. Hypokalemia Prognosis at Discharge: Good Prognosis regarding pneumonia. CURB-65 supports 6.8% mortality risk. I will treat with dual therapy beta lactam and doxycycline per guidelines x 5 days. Patient feels essentially back to baseline. Chronic DAVIDSON cause unknown reported migraine but he has features consistent with mixed type DAVIDSON/analgesic DAVIDSON. Head CT was negative, he noted no worsening than his baseline. Morphin q 6 hours while in hospital, no significant lab changes and no new labs since 06/30. He was maximally optimized with this hospitalization. Condition at Discharge: 1. SOA/Pneumonia: Stable/improved. Will d/c with 5 days of dual therapy Beta lactam/doxycycline 2. Chronic Migraine: Stable/chronic. Follow-up outpatient with PCP 3. Hypokalemia resolved 4. Hypertension: Chronic/Stable. Medication lisinopril to be held. Norvasc dropped to 5mg daily. 5. Chronic anticoagulation: ON Xarelto chronically, stable no issues. 6. Anemia: Follow-up as an outpatient with [facility] Medications at Discharge: Ambulatory Orders Medication Instructions Recorded Albuterol Sulfate [Ventolin Hfa] 2 inhaler IH QID PRN 10/22/14 Escitalopram Oxalate [Lexapro] 40 mg PO DAILY 11/11/15 Guaifenesin [Mucinex] 1,200 mg PO BID #30 tab-cap 11/08/16 Buspirone HCl 7.5 mg PO TID #90 tab-cap 03/20/17 Ipratropium/Albuterol Sulfate 3 ml IH Q4H PRN 05/03/17 [Iprat-Albut 0.5-3(2.5) mg/3 ml] Rivaroxaban [Xarelto] 20 mg PO 1700 #30 tab-cap 05/19/17 Alprazolam 1 - 2 tab PO BEDTIME #60 tab-cap 12/27/17 Cyanocobalamin (Vitamin B-12) 1 tab PO DAILY 12/27/17 [Vitamin B-12] Sotalol HCl [Sotalol] 80 mg PO Q12H 12/27/17 Amlodipine Besylate [Norvasc] 5 mg PO DAILY 30 Days #30 tablet 07/02/18 Cefuroxime Axetil [Cefuroxime] 500 mg PO BID 5 Days #10 tablet 07/02/18 Doxycycline Monohydrate 100 mg PO BID 5 Days #10 capsule 07/02/18 Gabapentin [Neurontin] 600 mg PO Q6HR 30 Days #120 capsule 07/02/18 Lab/Diagnostics: Laboratory Last Values WBC 11.05 K/ul (4.2-10.2) H 06/30/18 04:20 RBC 4.17 10^6/ul (4.70-6.10) L 06/30/18 04:20 Hgb 12.8 g/dl (14.0-18.0) L 06/30/18 04:20 Hct 39.1 % (42.0-52.0) L 06/30/18 04:20 MCV 93.8 fl (80.0-94.0) 06/30/18 04:20 MCH 30.7 pg (27.0-31.0) 06/30/18 04:20 MCHC 32.7 (31.8-35.4) 06/30/18 04:20 RDW Coeff of [place] 13.0 % (11.6-14.8) 06/30/18 04:20 Plt Count 202 10^3/uL (140-440) 06/30/18 04:20 Immature Gran % (Auto) 0.3 % (0.0-5.0) 06/30/18 04:20 Neut % (Auto) 72.3 06/30/18 04:20 Lymph % (Auto) 18.2 (10.0-50.0) 06/30/18 04:20 [place] % (Auto) 6.6 (0-10) 06/30/18 04:20 Eos % (Auto) 1.7 % (0.0-7.0) 06/30/18 04:20 Baso % (Auto) 0.9 % (0.0-3.0) 06/30/18 04:20 Immature Gran # (Auto) 0.0 (0.0-1.0) 06/30/18 04:20 Neut # (Auto) 8.0 K/ul (2.0-6.9) H 06/30/18 04:20 Lymph # (Auto) 2.0 K/uL (0.60-3.4) 06/30/18 04:20 [place] # (Auto) 0.7 K/uL (0.4-2.0) 06/30/18 04:20 Eos # (Auto) 0.2 K/ul (0.0-0.7) 06/30/18 04:20 Baso # (Auto) 0.1 K/uL (0-0.2) 06/30/18 04:20 Puncture Site Rbrach 06/29/18 16:32 O2 Saturation 93.0 % (95-100) L 06/29/18 16:32 ABG pH 7.336 (7.35-7.45) L 06/29/18 16:32 ABG pCO2 56.8 mmHg (35-45) H 06/29/18 16:32 ABG pO2 71.0 mmHg (85-100) L 06/29/18 16:32 ABG HCO3 30.3 (22.0-26.0) H 06/29/18 16:32 ABG Total CO2 32 (22.0-28.0) H 06/29/18 16:32 ABG Base Excess 4 (-2.0-2.0) H 06/29/18 16:32 O2 Delivery Device Nc 06/29/18 16:32 Oxygen Liter Flow 2.00 06/29/18 16:32 Sodium 139.9 mmol/L (134.5-145) 06/30/18 04:20 Potassium 4.04 mmol/L (3.5-5.1) 06/30/18 04:20 Chloride 102.3 mmol/L (98-107) 06/30/18 04:20 Carbon Dioxide 30.0 mmol/L (22-30.0) 06/30/18 04:20 Anion Gap 11.64 06/30/18 04:20 BUN 16.9 mg/dL (9-20) 06/30/18 04:20 Creatinine 0.47 mg/dL (0.60-1.10) L 06/30/18 04:20 Estimated GFR (MDRD) 179.00 mL/min 06/30/18 04:20 BUN/Creatinine Ratio 35.95 06/30/18 04:20 Glucose 90.6 mg/dL (74-106) 06/30/18 04:20 Calcium 8.79 mg/dL (8.4-10.2) 06/30/18 04:20 Total Bilirubin 0.47 mg/dL (0.2-1.3) 06/30/18 04:20 AST 29.1 U/L (17-59) 06/30/18 04:20 ALT 17.8 U/L (0-50) 06/30/18 04:20 Alkaline Phosphatase 58.0 U/L (56-119) 06/30/18 04:20 NT-Pro-B Natriuret Pep 113.000 pg/mL (0-124) 06/29/18 20:05 Total Protein 6.62 g/dL (6.3-8.2) 06/30/18 04:20 Albumin 3.70 g/dL (3.5-5.0) 06/30/18 04:20 Globulin 2.92 06/30/18 04:20 Albumin/Globulin Ratio 1.26 06/30/18 04:20 Procalcitonin < 0.05 ng/mL (<0.05) 06/29/18 16:59 Urine Color Yellow (YELLOW) 06/29/18 21:30 Urine Clarity Clear (CLEAR) 06/29/18 21:30 Urine pH 6.0 (5-9) 06/29/18 21:30 Ur Specific [place] >=1.030 (1.005-1.030) 06/29/18 21:30 Urine Protein Negative (NEGATIVE) 06/29/18 21:30 Urine Glucose (UA) Negative (NEGATIVE) 06/29/18 21:30 Urine Ketones Negative (NEGATIVE) 06/29/18 21:30 Urine Blood Negative (NEGATIVE) 06/29/18 21:30 Urine Nitrite Negative (NEGATIVE) 06/29/18 21:30 Urine Bilirubin Negative (NEGATIVE) 06/29/18 21:30 Urine Urobilinogen 1.0 (0.2) 06/29/18 21:30 Ur Leukocyte Esterase Negative (NEGATIVE) 06/29/18 21:30 Influ A Molecular Assay Negative by naat (NEGATIVE) 06/29/18 17:01 Influ B Molecular Assay Negative by naat (NEGATIVE) 06/29/18 17:01 Blood cultures negative Sputum cultures normal deven CT Chest showed some patchy infiltrates bilateral upper lobes. CT head today showed no acute process/change. Pending tests: Confirmatory flu testing Education Provided to Patient and Family: 1. Pneumonia: Antibiotics, R/B/A and SE 2. Chronic anticoagulation: R/B/A and SE 3. Anemia: Chronic may be secondary to anticoagulation 4. 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 5. Chronic migraines: Discussed types of DAVIDSON and that this may be related to opiates. Follow-ups: 1. Dr. Ireland this week. Disposition: HOME SELF-CARE Hospital Course: 67 yo CM admitted 06/29/[address] Ireland through the ER with 6 days history of URI, flu like symptoms, chronic migraine. On 06/29/18 the of the patient contacted PCP office and noted history above. Patient noted he was informed by PCP office to go to ER and PCP would see him there. Mild SOA, Sore throat, rhinorrhea, increased cough, sputum production, and MARKS. He noted intermittent PND and orthopnea, chronic SHARON on CPAP. He has known chronic pulmonary disease follows with Dr. Delgado. History of pneumonia x 2. History of chronic heart rhythm issues atrial flutter on xarelto chronically, on sotalol for rhythm control and follows with Dr. Keller in [place]. The patient was flu negative, CT scan showed bilateral upper lobe patchy infiltrates c/w pneumonia, chronic afib on rhythm control and anticoagulation. He was afebrile, had mild leukocytosis, mild hypokalemia, mild anemia. He was started on cefepime and his BP medications were titrated down, lisinopril held, norvasc backed down to 5mg and neurontin decreased as well. based on his relative hypotension. The patient tolerated cefepime and he and I discussed IDSA guidelines today. Migraine chronically with headache rated at 9/10-10/10 throughout hospital stay. His home tylenol #4 was changed to IM/IV morphine throughout hospital stay. Patient seen by Dr. Ireland up until today, hospital day 4 DAVIDSON entire time, cefepime abx throughout hospital stay. With history of tachyarrhythmia I would suggest that he has a contraindication to macrolide (QT prolongation) and I would add doxycycline to Beta lactam at discharge. Nursing notes reviewed with him this am. Morphine has not really provided much relief. No fever throughout hospital stay. Mild bradycardia on am of d/c asymptomatic, tele supporting 1st degree AV block. Sputum culture normal deven, Blood culture negative x 48 hours. WBC last check 11.05, hgb stable 12.8, plt 202 and okay 06/30/18. The patient CMP showed 139.9 sodium, 4.04 potassium. CO2 30 and okay. Creatinine 0.47 and glucose 90.6. BNP was negative at 113, procalc was negative at admit < 0.05. UA was negative, flu was negative. This am, the patient noted that he did not feel any different now than he has over past 1 month. He notes he came into hospital due to dehydration, this has resolved with fluids and he felt much better. He reports that he had been laying in bed for 4 days, feels week/ tired and feels he got sick after caring for sister age 65 after stroke. Patient has been in bed since arrival, he notes the way he gets over his migraine is to sleep through them. He has had them last 1/2 day to 2 weeks before. He gets them less frequently when not tired/beat up and worn out. He wanted to go home yesterday and not that he has been feeling this well, we will d/c him today. I discussed with patient with his vitals/labs/stats/improvement that he has a higher chance of getting sicker in hospital than home. Patient feels better than last 48 hours and feels he is progressively improving. The patient felt he could make it at home and would like to go home. This am he has no c/o any symptoms except head pain. I talked to him for 30 minutes face to face to today. We discussed abx, discussed that he needs double therapy if we are dx him with pneumonia. I will d/c on Beta lactam/doxy to complete 5 day course. W/ his head pain, I did order Head CT, which returned no acute process. He noted he does not feel any different than he would at home. ABG at admit chronic process Primary respiratory acidosis, chronic with compensated metabolic alkalosis. 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 At this time we will prepare his d/c home. F/U with PCP in 1 week. Resume home meds. I will continue to hold the lisinopril, I will provide new rx for norvasc 5mg and for the 2400 mg of gabapentin per day as in the JUL. Day of D/C Physical Examination Vital Signs - 24 hr 07/02/18 07/02/18 07/02/18 04:49 10:00 13:33 Temperature 97.8 F 97.8 F Pulse Rate 55 L 63 Respiratory 20 18 Rate Blood Pressure 123/71 108/63 O2 Sat by Pulse 93 L 96 95 Oximetry Constitutional: Appearance-No acute distress, Consistent with stated age, using CPAP, talks in complete sentences, earring left ear noted. Orientation- Oriented x 3, alert Gait-unobserved. Build and Nutrition-[normal] General- Patient is pleasant and cooperative with the interview and exam. Integumentary: General-No rashes, ulcers or lesions. Palpation- Normal skin moisture/turgor. Skin is warm to touch, appropriate. Capillary refill is normal bilateral Upper and lower extremity. Head/Neck: Head- normocephalic and atraumatic. Neck- without visible/palpable lumps or pulsations. Palpation- No bony tenderness about head/neck along frontal, occipital, temporal, parietal, mastoid, jawline, zygoma, orbit or any other location. NO temporal artery tenderness. No TMJ tenderness. Neck Supple. Thyroid-No thyromegaly, no nodules Eye: Bilaterally PERRLA, EOMI. No discharge. Upper and lower eyelids are normal. Sclera/conjunctiva normal without discharge. Cornea is normal and clear. Lens is normal. Eyeball appears normal. No ciliary flushing, no conjunctival injection. ENMT: Pinna- normal without tenderness or erythema. External auditory canal Left- normal without erythema or discharge, no excessive cerumen. External auditory canal Right-normal without erythema or discharge, no excessive cerumen. TM left- [place]/pearly, normal light reflex and anatomy TM Right- [place]/ pearly, normal light reflex and anatomy Hearing Assessment-normal to conversational speech. Nose and sinus- No sinus tenderness along frontal/ maxillary region. External appearance normal and midline. Nares- bilateral quiet airflow, no discharge. Nasal mucosa- No bleeding noted and no ulcerations observed. [place], moist. Turbinates non boggy. Lips- normal color, moist without cracks/lesions Oral Cavity/Palate- hard/soft palate intact without lesions, oral mucosa pink and moist. Oropharynx- no pharyngeal erythema, Uvula midline. No post nasal drip. No exudate. Salivary glands- Non tender to palpation CHEST/LUNG: Inspection- symmetric chest wall no pectus deformity. Normal effort , no distress, no use of accessory muscles. Palpation- nontender sternum, ribline. No abnormal pulsations. Auscultation- Breath sounds diminished throughout all lung [place]. Coarse tracheal sounds, bronchial sounds overlying sternum, Bronchovessicular sounds between scapulae posteriorly, vessicular breath sounds heard throughout periphery. Lungs w/ scattered rhonchi, rare scattered wheezes. Adventitious sounds- No wheezes, rales, rhonchi. CARDIOVASCULAR: Auscultation- Regular rate and rhythm. Not currently in afib. No murmur noted in sitting, supine positions. Extremities- no digital clubbing, cyanosis, edema, increased warmth. ABDOMEN: Inspection- normal and no visible pulsations. Normal contour. Auscultation- Bowel sounds normal, no abdominal bruits. Palpation/Percussion- soft, non-tender, no rebound tenderness, no rigidity (guarding), no jar tenderness, no masses. Liver-no hepatomegaly, Spleen no splenomegaly, Hernias - none. Rectal not examined. Peripheral Vascular: Upper extremity Left- Normal temperature with pink nailbeds and no ulcerations. Upper extremity Right- Normal temperature with pink nailbeds and no ulcerations. Lower extremity- Normal temperature with pink nailbeds and no ulcerations. DP pulses 2+ bilaterally. Pedal hair intact. Normal capillary refill. Edema- No edema. Musculoskeletal: Generalized-No generalized swelling or edema of extremities, no digital clubbing or cyanosis, neurovascularly intact all four extremities. Neurological: General- Moves all 4 extremities symmetrically. Symmetrical face and body posture. Cranial nerves- individually evaluated II-XII and intact. PERRLA, Normal EOMI, visual/special senses appear intact, Face is symmetrical and normal sensation/movement, normal tongue, normal strength/posture of neck musculature. Neuropsych: Oriented- Person, place, time. (AAOx3), Mood/affect- normal and congruent. Able to articulate well. Speech-Normal speech, normal rate, normal tone, normal use of language, volume and coherence. Thought content- normal with ability to perform basic computations and apply abstract thought/reason. Associations- intact, no SI/HI, no hallucinations, delusions, obsessions. Judgment/insight- Appropriate. Memory-Recall intact, remote and recent memory intact. Knowledge- Age appropriate fund of knowledge, concentration and attention span normal. Lymphatic: Head/Neck- normal size and non tender to palpation. Axillary- normal size and non tender to palpation. Femoral and Inguinal- normal size and non tender to palpation. Plan: 1. Hold lisinopril 2. Reduced dose of norvasc to 5 mg daily new Rx sent to pharmacy 3. Gabapentin reduced to 2400mg daily by PCP 4. I will d/c him with cefuroxime 500 mg BID and doxycycline 100 mg BID x 5 days 5. Would recommend f/u with Neurology again 6. Chronic opiate use, mixed DAVIDSON type is most likely with analgesic DAVIDSON as possible. May benefit from stopping these agents and seeing how the sx change. 7. Waiting on send out confirmatory flu, this does not preclude his d/c home. 8. Reviewed vitals/CT chest/CT head from today with patient and they are all reasonable. 9. Diet Would recommend DASH diet 10. Activity ad aristeo. 11. F/U with PCP this week, keep DAVIDSON diary. Patient has reached maximal point of benefit from hospital stay and d/c today. > 30 minutes spent with patient today coordinating the d/c.
[2018-07-02 13:33] VITALS: BP 108/63
--- NOTE | 2018-07-03 14:13 | ER ---
DATE OF VISIT: 06/29/18 Stephen Beard His today at the office in the course of her examination she asked me if I could see Stephen because he was not feeling good. I know Stephen's problem is a chronic respiratory failure with oxygen. He had been intubated twice in [place] for respiratory failure exacerbation. I did advise Hayley Arrieta that maybe I should see him in the emergency room. Initially, the office received a call that he is not going to the emergency room because he is feeling better, but before I left the office we again had another message that he is now going to the emergency room so he is at the emergency room. CHIEF COMPLAINT: Increasing shortness of breath and headache. HISTORY OF PRESENT ILLNESS: He is complaining of headaches. His headache is exacerbated by light. His room was darkened. He did complain of chills and muscle aches and sweating and alternating cold and hot sensations since about a week ago, Monday. He did not have any temperature. However, this patient is taking Tylenol with Codeine around the clock every six hours and maybe even more. That might have accounted for the absence of the temperature rise above normal. The patient continued to feel bad and he was seen today at the emergency room because of increasing shortness of breath. He had increased his oxygen to 4 liters per minute from 2. The patient is using a BiPAP at night. Unfortunately, the patient is still smoking and he had been advised so many times to stop the habit, but that had not been adhered to. PHYSICAL EXAMINATION: He is alert and responsive with movement of all extremities. LUNGS: Breath sounds are diminished with some rales. The rales decreases with several deep breaths. There is no obvious wheezing. HEART: Audible and regular with good tones. ABDOMEN: Nontender. LOWER EXTREMITIES: No significant edema. Posterior tibials are palpable. UPPER EXTREMITIES: Symmetrical and equal. CT of the chest indicates infiltrate in the upper lobes. WBC minimally elevated. Arterial blood gases showed severe hypoxemia in spite of the oxygen, as well as hypercarbia. This patient needs to stop smoking. We will see how he does in the hospital. He will be given an antibiotic in spite of the fact that maybe the pneumonia is probably influenzal, more so that the Procalcitonin is normal. We will see if the Procalcitonin would rise. The quantitative influenza A and B also was requested. ASSESSMENT: 1. PNEUMONIA, UPPER LOBES 2. SEVERE HYPOXEMIA 3. HYPERCARBIA 4. TOBACCO USE AND ABUSE, PERSISTENT 5. CHRONIC MIGRAINE HEADACHES PROGNOSIS: Poor. MTDD
--- NOTE | 2018-07-09 14:51 | HP ---
DATE OF SERVICE: 06/29/18 CHIEF COMPLAINT: Chills, muscular aches, heaache. SOURCE OF HISTORY: The patient and . HISTORY OF PRESENT ILLNESS: The patient claimed that he experienced cough followed by chills, headaches and muscular aches some 6 to 7 days prior to presentation to the emergency room. The problem continued and developed productive purulent sputum with some shortness of breath. He presented to the emergency room and during the course of evaluation was found to have bilateral upper lobe infiltrate probably early pneumonia. The patient's arterial blood gases showed moderate hypoxemia with respiratory acidosis, metabolic compensation, mild. Influenza A and B were negative at the emergency room. He was admitted then with a diagnosis of bilateral upper lobe pneumonitis. He also has severe COPD with chronic respiratory failure and chronic tobacco use. PAST PERSONAL HISTORY: The patient had two admissions in [facility] requiring intubation. The patient had been using a BIPAP machine during the day as well as at night. The patient continued to smoke in spite of several admonitions to stop. He also is diagnosed with atrial fibrillation and had cardioversion and chronic headaches described as migraine and diagnosed as such. He had seen a neurologist for this migraine both at [place] as well as [place]. He also had been to a specialty head clinic. The patient is being followed by a psychiatrist in [place]. History of depression, anxiety, chronic, history of fluctuations of blood pressure plus cholecystectomy several years ago, endoscopy and colonoscopy years ago. Asthma when he was young. FAMILY HISTORY: Father had carcinoma in the penile area with lung and cerebral metastasis and from the disease. Mother had lung carcinoma with cerebral metastasis. 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 He has a son that is grown. His is also a retired schoolteacher. The patient continues to smoke in spite of repeated advice to stop the habit. MEDICATIONS: (PRIOR TO THIS ADMISSION) Albuterol Sulfate two puffs four times as day as needed Lexapro 40 mg daily Mucinex 1200 mg twice a day Buspar 7.5 mg three times a day Gabapentin 1200 mg four times a day prescribed by Dr. Delgado Lisinopril 10 mg daily Ipratropium Albuterol Sulfate inhalation q.4hr p.r.n. per nebulizer Xarelto 20 mg daily Tylenol with Codeine #4 one tablet q.6hr p.r.n. for headache Protonix 40 mg daily Sotalol 80 mg twice a day Vitamin B12 1,000 mcg tablet daily (hope it is sublingual) Alprazolam 0.5 mg 1 -2 tablets at bedtime Amlodipine 10 mg daily ALLERGIES: BUTORPHANOL TARTRATE, PROCHLORPERAZINE EDISYLATE REVIEW OF SYSTEMS: CONSTITUTIONAL: The patient has chills but no obvious fever probably because he is taking Tylenol every 6 hours, muscular aches and fatigues. 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 The headache at this time may be part of the symptom complex of chills, muscular aches and headache although the fever was more or less masked by the Tylenol that is taken every 6 hours. Denies any ataxia. No syncopal episode or seizure disorder. VISUAL: Denies any double vision, blurred vision or transient loss of vision. AUDITORY: Denies any ringing, pain or drainage. He is able to hear without any aids such as hearing aid. RESPIRATORY: The patient has cough with some purulent sputum and some shortness of breath, has increased his oxygen to 4L ast home because of increasing sensation of not getting enough air. The patient has a BIPAP machine at home. He denies any hemoptysis. CARDIOVASCULAR: Denies any chest pain, chest tightness, palpitations, diaphoresis. GASTROINTESTINAL: Appetite has decreased since his illness. He has not vomited and no diarrhea. GENITOURINARY: Denies any pain, frequency or nocturnal frequency. No urgency. MUSCULOSKELETAL: The patient is complaining of pain as well as muscular soreness all over. ENDOCRINE: The patient has no problems with polyuria or polydipsia and no history of diabetes. INTEGUMENT: Denies any rash or pruritus. HEMATOLOGIC: Negative. PSYCHIATRIC: Affect appears to be down but patient may not feel very well since he had been sick for one week. He has a sister with depression as well as anxiety. His under the care of a psychiatrist in [place]. 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 He had increased his oxygen to 4L from 2 because of the sensation of not getting enough air prior to presentation to the emergency room. He is alert, oriented and answers questions. He does have nasal oxygen. VITAL SIGNS: On the floor (not in the emergency room) showed a temperature of 97.9, pulse 79, blood pressure 139/87, respiratory rate 18, oxygen saturation 94 on 2L of oxygen. He is 6'1", weighing 151 lbs. HEAD: Unremarkable. Scalp - no active dermatitis. Face is symmetrical and equal with no facial weakness, no significant tenderness in the frontal or maxillary sinus areas to palpation and/or pressure. EYES: Pupils equal/reactive to light about 3 mm in size. Conjunctivae not pale to slightly pale. Sclerae not icteric. MOUTH: Unremarkable. THROAT: No inflammation, tumors or exudate. NECK: No masses. No bruit. No tenderness. No rigidity. CHEST: Essentially symmetrical and equal with good expansion. LUNGS: Breath sounds are diminished on both sides with some coarse rales and no obvious rales or wheezing. HEART: Audible and regular with good tones. No murmurs. I listened to it for some time to see if there is any irregularity. He doesn't have rhythm like an atrial fibrillation. ABDOMEN: Flat, soft with no remarkable tenderness. No guarding. Bowel sounds are active. No masses palpable. EXTERNAL GENITALIA: Not examined. RECTAL: Not performed. LOWER EXTREMITIES: Essentially symmetrical and equal with no edema. Anterior tibials are palpable. Posterior tibials could not be found UPPER EXTREMITIES: Symmetrical and equal. ASSESSMENT: 1. BILATERAL UPPER LOBE PNEUMONITIS PROBABLY VIRAL 2. VIRAL SYNDROME PROBABLY VIRAL A TIME SPENT: GREATER THAN 65 MINUTES MTDD
== END 2018-07-02 14:04 | disposition home or self-care (01) | DRG 195 ==
LOC: ED 15:49 → MEDSURG B 18:35
PROVIDERS: ADMIT General Practice; ATTEND General Practice
DX: J18.1 Lobar pneumonia, unspecified organism (principal); R51 Headache; R09.02 Hypoxemia; R06.89 Other abnormalities of breathing; G43.909 Migraine, unspecified, not intractable, without status migrainosus; E87.6 Hypokalemia; I10 Essential (primary) hypertension; D64.9 Anemia, unspecified; Z79.891 Long term (current) use of opiate analgesic; Z72.0 Tobacco use
CPT/HCPCS: 36415; 80053; 81001; 82803; 83880; 84145; 84403; 85025; 86710; 87040; 87070; 87077; 87186; 87205; 87502; 87651; 93005; 93010; 99239; 99284

== ENCOUNTER 2018-10-22 13:08 | Inpatient (IN) ==
--- NOTE | 2018-10-22 15:25 | CT ---
EXAM: CT of the chest without contrast History: Cough. Comparison: Chest CT 06/29/2018 Technique: Multiplanar CT images through the thorax were obtained without the administration of IV c ontrast Findings: Heart size is normal. No pericardial effusion. Coronary calcifications. No thoracic aor tic aneurysm. No pathologically enlarged thoracic lymph nodes. Calcified granulomas again seen with in the thorax. Emphysema again noted. No consolidation. No pleural fluid and no pneumothorax. Sta ble benign 5 mm pleural based nodule within the right lower lobe. No suspicious lung masses or lung nodules. Within the visualized upper abdomen, no acute findings. Status post cholecystectomy. No acute osseo us abnormalities. Impression: 1. No acute intrathoracic process. 2. Emphysema. 3. Coronary artery disease
[2018-10-22 18:00] VITALS: BMI 20.4
[2018-10-22] MEDS ORDERED: ACETAMINOPHEN WITH CODEINE PO PRN (18:32)
[2018-10-22] MEDS ORDERED: [UNRECOGNIZED DRUG - OTHER] PO PRN (18:32)
[2018-10-22] MEDS ORDERED: NON-FORMULARY MEDICATION (Alprazolam [Alprazolam] 1 MG) PO PRN (18:33)
[2018-10-22] MEDS ORDERED: PROAIR HFA IH PRN (18:33)
[2018-10-22] MEDS ORDERED: TYLENOL #3 TAB PO STA (18:41)
[2018-10-22] MEDS: DEXTROSE 5%-LR IV SOLUTION 1,000 ML IV SCH (18:45)
[2018-10-22] MEDS ORDERED: BETAPACE PO SCH (19:00)
[2018-10-22] MEDS ORDERED: BETAPACE ONE (19:36)
[2018-10-22] MEDS ORDERED: NON-FORMULARY MEDICATION (Buspirone Hcl [Buspirone Hcl] 7.5 MG) PO SCH (21:00)
[2018-10-22] MEDS ORDERED: NON-FORMULARY MEDICATION (Guaifenesin [Mucinex] 1,200 MG) PO SCH (21:00)
[2018-10-22] MEDS ORDERED: GABAPENTIN PO SCH (21:00)
[2018-10-22] MEDS ORDERED: SOLU-CORTEF 250 MG IVP STA (21:22)
[2018-10-22] MEDS ORDERED: ZOFRAN 4 MG/2 ML IVP PRN (21:25)
[2018-10-22] MEDS ORDERED: MUCINEX ONE (21:58)
[2018-10-22] MEDS ORDERED: NEURONTIN ONE (21:58)
[2018-10-22] MEDS ORDERED: BUSPAR ONE (21:59)
[2018-10-22] MEDS ORDERED: NON-FORMULARY MEDICATION (Gabapentin [Gabapentin] 800 MG) PO SCH (22:00)
[2018-10-23] MEDS: DEXTROSE 5%-LR IV SOLUTION 1,000 ML IV SCH ×4 (05:53→20:11)
[2018-10-23] MEDS ORDERED: XANAX PO PRN (06:53)
[2018-10-23] MEDS ORDERED: BETAPACE PO SCH (07:00)
[2018-10-23] MEDS ORDERED: NON-FORMULARY MEDICATION (Escitalopram Oxalate [Lexapro] 20 MG) PO SCH (09:00)
[2018-10-23] MEDS: NORVASC PO SCH (09:34)
[2018-10-23] MEDS: BUSPAR PO SCH ×3 (09:35→20:24)
[2018-10-23] MEDS: LEXAPRO PO SCH (09:35)
[2018-10-23] MEDS: NEURONTIN PO SCH ×6 (09:35→20:23)
[2018-10-23] MEDS: PROTONIX PO SCH (09:36)
[2018-10-23] MEDS: MUCINEX PO SCH ×2 (09:36→20:24)
[2018-10-23] MEDS: BETAPACE PO SCH ×2 (09:41→20:24)
[2018-10-23] MEDS: CANNABIDIOL PO SCH (09:43)
[2018-10-23] MEDS: CYANOCOBALAMIN PO SCH (09:43)
[2018-10-23] MEDS: NON-FORMULARY MEDICATION (Chlorpheniramine Maleate [Chlor-Trimeton] 4 MG) PO SCH (09:43)
[2018-10-23] MEDS ORDERED: TYLENOL #3 TAB PO STA ×2 (13:34→21:27)
[2018-10-23] MEDS ORDERED: SOLU-CORTEF 250 MG IVP STA (13:34)
[2018-10-23] MEDS ORDERED: XARELTO PO SCH (17:00)
[2018-10-23] MEDS ORDERED: NON-FORMULARY MEDICATION (Rivaroxaban [Xarelto] 20 MG) PO SCH (17:00)
[2018-10-24] MEDS ORDERED: TYLENOL #3 TAB PO STA (04:36)
[2018-10-24] MEDS: DEXTROSE 5%-LR IV SOLUTION 1,000 ML IV SCH ×2 (04:49→16:24)
[2018-10-24] MEDS: PROTONIX PO SCH (05:49)
[2018-10-24] MEDS: CANNABIDIOL PO SCH (09:00)
[2018-10-24] MEDS: NON-FORMULARY MEDICATION (Chlorpheniramine Maleate [Chlor-Trimeton] 4 MG) PO SCH (09:00)
[2018-10-24] MEDS: CYANOCOBALAMIN PO SCH (09:00)
[2018-10-24] MEDS: MUCINEX PO SCH (09:09)
[2018-10-24] MEDS: NEURONTIN PO SCH ×4 (09:10→16:29)
[2018-10-24] MEDS: BUSPAR PO SCH ×2 (09:11→15:00)
[2018-10-24] MEDS: BETAPACE PO SCH (09:12)
[2018-10-24] MEDS: LEXAPRO PO SCH (09:13)
[2018-10-24] MEDS: NORVASC PO SCH (09:13)
[2018-10-24 14:06] VITALS: BP 170/94; TEMP 97.8
--- NOTE | 2018-11-02 11:35 | HP ---
DATE OF SERVICE: 10/22/18 CHIEF COMPLAINT: Migraine and shortness of breath. SOURCE OF HISTORY: The patient and the very end of the history the came in the room. HISTORY OF PRESENT ILLNESS: Mr. Beard is a pleasant 67 [address] old patient of Dr. Ireland who presented to the Emergency Department with complaints of migraine and difficulty breathing. He tells me that he doesn't remember much about the emergency room visit. He just remembers having a terrible migraine headache and difficulty breathing. He tells me that this migraine headache has been present for over a week and he has progressive increase in shortness of breath over the last several weeks after speaking with him for several minutes his did present to the room at the end of the history and does report that he has had increasing shortness of breath as well as worsening headache as well as slow mentation and some confusion over the past week or so. She has become concerned about him. He does report that he does not remember much about the Emergency Department visit. He does admit to on going smoking less than one pack per day. He does report that most days he smokes less than a half a pack of cigarettes per day. He does have a significant past medical history of migraines and COPD. He does wear a specialized BIPAP that is ordered by Dr. Delgado in [place], [place]. He also has a history of migraines. He has had a significant history of intubations for acute respiratory failure. Upon arrival to the emergency department his O2 saturation was 93%. His pH was 7.291, pCo2 72.1, pO2 77 and his ABG HCO3 was 34.8. His total CO2 was 37. His CT scan of the chest was completed in the emergency department and it showed no acute intrathoracic process. It did show emphysema and Coronary artery disease. Dr. Ireland did see the patient in the Emergency Department and did evaluate the patient. Decision was made to admit the patient for further evaluation and treatment for acute on chronic respiratory failure. PAST PERSONAL HISTORY: Previous admission for respiratory failure requiring intubation History of BIPAP machine used during the day as well as night Continues to smoke despite several recommendations to stop History of atrial fibrillation with cardioversion History of chronic migraine headaches, he has seen a neurologist for the migraines in both [place] as well as [place]. He has also been to a speciality headache clinic. According to Dr. Ireland he is being followed by a psychiatrist in [place] History of Depression and Anxiety History of fluctuation of blood pressure History of cholecystectomy several years ago Endoscopy and colonoscopy years ago Asthma as a child. FAMILY HISTORY: Father had carcinoma in the penile area with lung and cerebral metastasis and from this disease Mother had lung carcinoma with cerebral metastasis SOCIAL HISTORY: He is . 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 He has a son that is grown. 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 He continues to smoke at least a half a pack of cigarettes per day. He denies any alcohol or illicit drug use. MEDICATIONS: Ventolin HFA two inhalations four times a day as needed Mucinex 1200mg twice a day Ipratropium Albuterol sulfate NEB 3ml inhalation every four hours as needed Xarelto 20mg tablet daily Protonix 40mg as needed Vitamin B 12 one tablet daily Norvasc 5mg daily Lexapro 20mg daily CBD oil tablet 15mg daily Buspirone 7.5mg tablet three times a day Tylenol with codeine one tablet every 6 hours as needed Alprazolam 1mg tablet ever 12 hours as needed Gabapentin 400mg capsule two tablets threes times a day Sotalol 80mg tablet every 12 hours Chlorpheniramine Maleate 4mg tablet daily ALLERGIES: Butorphanol tartrate Prochlorperazine edisylate Prochlorperazine maleate REVIEW OF SYSTEMS: CONSTITUTIONAL: Denies any chills, no reports of fever, denies any muscle aches. Does report some generalized fatigue. 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 He does report chronic migraine headaches. He does complain of generalized fatigue and increase in weakness. VISUAL: No reports of double vision. Denies any blurred vision or any transient loss of vision. AUDITORY: No reports of ringing, pain or drainage. RESPIRATORY: He does report of cough and chronic sputum production with increase short of breath as well increase in dyspnea. He does wear chronic oxygen sometime up to 4 liters per nasal cannula. He does wear a chronic BIPAP machine. No reports of hemoptysis. CARDIOVASCULAR: No reports of chest pain, no reports of chest tightness or palpitation, diaphoresis, gastrointestinal. GASTROINTESTINAL: He does report of a chronic decrease in appetite. No reports of nausea, vomiting, diarrhea and constipation or blood in the stool. GENITOURINARY: No reports of any pain, frequency, no urgency. MUSCULOSKELETAL: Generalized weakness. No reports of joint stiffness or soreness. ENDOCRINE: No reports of polyuria or polydipsia. No reports of diabetes mellitus INTEGUMENT: No reports of rash or pruritus. HEMATOLOGIC: Negative PSYCHIATRIC: He does have a history of depression according to the history. 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 He is alert and oriented. He is able to answer my questions. He is in no acute distress at this time. VITAL SIGNS: 98.1, pulse rate 65, blood pressure 127/81, respiratory rate 22, oxygen saturation 91%. Height 6'1, weight 164 pounds. HEAD: Unremarkable. Scalp has no active dermatis FACE: Symmetrical. No facial weakness. No significant tenderness in the frontal or maxillary sinuses. EYES: Pupils equal/reactive to light. Conjunctivae not pale. Sclerae not icteric. 3mm in size. MOUTH: Unremarkable. He does have partials to upper and lower. THROAT: No inflammation, tumors or exudate. NECK: No masses. No bruit. No tenderness. No rigidity. CHEST: Symmetrical. Normal expansion LUNGS: Diminished bilaterally. No wheezing or rales. HEART: Audible and regular with good tones. No murmurs. ABDOMEN: Soft. Bowel sounds are positive. No guarding. EXTERNAL GENITALIA: Not examined RECTAL: Not performed LOWER EXTREMITIES: No edema. Anterior tibial pulses are palpable. Posterior tibials could not be palpated. UPPER EXTREMITIES: Symmetrical and equal ASSESSMENT: 1. Acute on chronic respiratory failure 2. History of COPD with on going tobacco use 3. History of migraine headache 4. History of atrial fibrillation 5. History of depression and anxiety PLAN: 1. Follow respiratory status closely 2. Solu-Cortef has been administered 3. ABG have been followed 4. NEBS have barak ordered 5. The patient is currently on telemetry monitoring 6. Further orders and recommendations per Dr. Ireland. TIME SPENT: GREATER THAN 65 MINUTES MTDD
--- NOTE | 2018-11-02 13:14 | DS ---
DATE OF SERVICE: 10/24/18 PATIENT IDENTIFICATION/HOSPITAL COURSE: Mr. Beard is a pleasant 67 year old patient of Dr. Ireland that presented to the Emergency Department with acute respiratory distress. Upon arrival to the Emergency Department his pCO2 63.4, pH 7.326, pO2 120, bicarb 33.1, O2 saturation did drop to 84%, pH dropped to 7.29%, pCO2 sheryl to 72.4%, pO2 decreased to 56, bicarb 35. Dr. Ireland did go see the patient in the Emergency Department. The patient was instructed on deep breathing. He was given dose Solu -Cortef IV while in patient and I believe he was also given Solu-Cortef in the Emergency Department. He does utilize a specialized BIPAP machine for breathing. This is ordered by Dr. Delgado from pulmonology in [place], [place]. The patient's breathing status was monitored while inpatient. He has stabilized and decision was made that he was felt stable enough to be discharged to home. Smoking cessation has been discussed with the patient. His heart rate has ran in the 50's and 60's while he has been here. We will need to decrease his Sotalol to 40mg twice a day. We will continue the rest of his home medications. He does feel like his pain prescription is making him sick to his stomach. Dr. Ireland did discuss with the patient that he will need to take his pain prescription with crackers or food. Plans to start Pulmonary Rehab tomorrow. Today his pCO2 is much improved at 47.8, pO2 81. His bicarb was 30.9, Total CO2 was 32, base excess was 6. These are taken on a BIPAP with an oxygen liter flow of 4. On 10/23/18 his hgb was 13, hct 40.8, BUN 17, creatinine 0.55. Urinalysis was negative. DISCHARGE MEDICATIONS: As mentioned above. He will continue his regular home medication with a decrease in his dosage of Sotalol. DISCHARGE DIET: Diet as tolerated DISCHARGE ACTIVITY LEVEL: Pulmonary rehab has been ordered. Activity has been encouraged to increase his activity level as tolerated. FINAL DIAGNOSES: 1. Acute on chronic respiratory failure 2. Chronic migraine headaches 3. History of atrial fibrillation in cardioversion 4. History of depression and anxiety that is chronic 5. Bradycardia. PLAN: 1. He will have a followup appointment in one week to see Dr. Ireland 2. Consultation to Pulmonary Rehab. Further orders and recommendations per Dr. Ireland. Thank you. TIME SPENT: GREATER THAN 30 MINUTES MTDD
--- NOTE | 2018-11-02 13:35 | PN ---
DATE OF SERVICE: 10/23/18 SUBJECTIVE: His vital signs were Temperature 98.1, pulse rate 62, blood pressure 121/69, respiratory rate 14, oxygen saturation 93% on BIPAP at 4 liters flow rate. Telemetry monitoring showed sinus 65 beats per minute. During his history and physical examination his did come in later during the exam and reports overall he is doing much better. The patient was able to answer all questions appropriately. He does tell me overall he is feeling much better and breathing much better. Lungs fitzgerald are diminished on exam. He reports that he is able to take a deeper breath now. He denies any chest pains. He has had several doses of Solu-Cortef. He did get another dose this afternoon as ordered per Dr. Ireland. He does feel like his medication is helping him breathing. He has been getting breathing treatments as well. I did speak with Dr. Ireland and he plans to discharge him maybe home tomorrow with Pulmonary Rehab if the patient continues to do well. His heart rate was regular on exam. He had no lower extremity edema. Today his hgb was 13.0, hct 40.8, plt count 208. His blood gasses this morning was improved. His O2 saturation was 93, pH 7.358, pCO2 down to 55, pO2 72, ABG HCO3 was down to 30.9, total CO2 was done at 33, base excess was down to 5. Again, overall he was feeling better. Further orders and recommendations per Dr. Ireland. [facility]
--- NOTE | 2018-11-02 14:53 | ER ---
CHIEF COMPLAINT: The patient presented to the Emergency Room at 1:09pm. because of cough that had been slightly productive for one week as well as headache. HISTORY OF PRESENT ILLNESS: He had taken his usual Tylenol #4 but the headache persisted. He denied any fever at home or chills. The patient is on a BIPAP machine and he is still smoking. I had advised him so many times a long ago for him to stop smoking because his lungs problems continued to deteriorate in spite of the medications. The patient does have some photophobia with headache. The patient at the emergency room was alert and responsive. LUNGS: Diminished breath sounds in both sides with questionable rales of the right midposterior chest. No expiratory wheezing or inspiratory. HEART: Audible and regular with good tones. ABDOMEN: Nontender. LOWER EXTREMITIES: Symmetrical and equal with no significant edema. CT scan of the chest showed no acute processes. Pro BNP is normal but the arterial blood gasses abnormal initially with 4 liters of oxygen. Blood gasses at 2:27pm showed an oxygen saturation of 98%, pH 7.326, pCO2 63.4, pO2 120, Bicarb 33.1, total CO2 35, base excess +7, oxygen flow was 4 liters. It is not 2 as indicated. Oxygen then was reduced to 2 liters per minute and the arterial blood gasses was repeated at 4:06pm and now the oxygen saturation is 84, pH down further to 7.29 and the pCO2 72.4 and the pO2 is 56 and bicarbonate is 35, total CO2 37, base excess +8. This is at 2 liters. His BUN is 19.8, creatinine 0.59 and GFR is 137. Liver panel is normal. Electrolytes slightly lower chlorides but no clinical significance. Carbon dioxide is 34.8 upper normal 30. Pro Calcitonin is less than 0.05. The Pro BNP is 108, normal. Urinalysis is unremarkable. This patient came in because of the headache and also the cough. This patient is exacerbated chronic respiratory failure. I did explain to him and his his lungs problems have worsened and that we will keep in the hospital hopefully it would improved. He had continued smoking. I told him that there is a possibility of transfer to another facility more so if his carbon dioxide would rise. Maybe intubated before that and if he is intubated he instantly would be transferred since we do not manage any ventilatory component in this facility. The understands it well and this explanation was repeated when he was admitted to the SC[facility], nurse then was present. This patient most likely will be given Solu-Cortef but we will wait for another arterial blood gasses at 8:00pm. He is placed on his BIPAP machine that was prescribed by the director child abuse therapy. [facility]
== END 2018-10-24 15:30 | disposition home or self-care (01) | DRG 189 ==
LOC: ED 13:08 → SCU 17:22
PROVIDERS: ADMIT General Practice; ATTEND General Practice
DX: J96.20 Acute and chronic respiratory failure, unspecified whether with hypoxia or hypercapnia (principal); J44.1 Chronic obstructive pulmonary disease with (acute) exacerbation; I48.91 Unspecified atrial fibrillation; F41.8 Other specified anxiety disorders; R00.1 Bradycardia, unspecified; R51 Headache
CPT/HCPCS: 36415; 80053; 81001; 82803; 83880; 84145; 85025; 93005; 93010; 99284

== ENCOUNTER 2018-12-27 13:26 | Outpatient (RCR) ==
[2019-01-10 15:24] VITALS: BP 146/62
== END 2019-01-12 23:59 ==
LOC: PUL.REHAB 13:26
PROVIDERS: ATTEND General Practice
DX: J44.9 Chronic obstructive pulmonary disease, unspecified (principal); J96.90 Respiratory failure, unspecified, unspecified whether with hypoxia or hypercapnia